=== PATIENT | male | born 1955 | race Caucasian/White ===

== ENCOUNTER 2020-09-12 11:56 | Outpatient (REF) | payer OTHER, SELFPAY | END 2020-09-12 11:57 | disposition home or self-care (01) | LOC: HO.10HDL 11:56 | PROVIDERS: Visit Provider Urology | DX: N32.0 Bladder-neck obstruction (principal) | CPT/HCPCS: 36415; 84153 ==

== ENCOUNTER → 2020-09-13 13:31 | Outpatient (BNVA) | payer OTHER, SELFPAY | PROVIDERS: PCP Internal Medicine; Visit Provider Urology | DX: N40.1 Benign prostatic hyperplasia with lower urinary tract symptoms (principal); R39.12 Poor urinary stream; N13.8 Other obstructive and reflux uropathy | CPT/HCPCS: 99212 ==

== ENCOUNTER 2022-05-09 10:09 | Outpatient (REF) | payer OTHER, SELFPAY ==
[2022-05-09 11:31] LABS: Vitamin B12 395 pg/mL (200-900)
== END 2022-05-09 10:10 | disposition home or self-care (01) ==
LOC: HO.LAB 10:09
PROVIDERS: PCP Internal Medicine; Visit Provider Psychiatry & Neurology Neurology
DX: G31.84 Mild cognitive impairment of uncertain or unknown etiology (principal)
CPT/HCPCS: 36415; 82607

== ENCOUNTER 2022-06-17 07:32 | Day surgery (SDC) | payer OTHER, SELFPAY ==
--- NOTE | 2022-05-22 09:45 | HO.ANESPROP2 ---
HPI - Anesthesia Eval Consult details Narrative: 66yo M for Colonoscopy PMFSH Active Problems Active Problems: All Active Problems (Updated 05/19/22 @ 12:17 by Kim Uriostegui, RN) BPH w urinary obs/LUTS (Acute) Weak urinary stream (Acute) Past Medical History Medical History (Updated 05/19/22 @ 12:17 by Kim Uriostegui, RN) Arthritis Asthma Chronic back pain COPD (chronic obstructive pulmonary disease) Depression Diabetes mellitus Diabetes type 2 with atherosclerosis of arteries of extremities Elevated cholesterol History of palpitations HTN (hypertension) Insomnia Surgical History Surgical History (Updated 05/19/22 @ 12:17 by Kim Uriostegui, RN) History of hand surgery Meds Allergies Allergy/AdvReac Type Severity Reaction Status Date / Time No Known Allergies Allergy Unverified 05/19/22 12:17 Home Medications Medication Instructions Recorded Confirmed Last Taken Type atorvastatin 20 mg tablet 20 mg PO DAILY 09/13/20 05/19/22 Unknown History cholecalciferol (vitamin D3) 10 10 mcg PO DAILY 09/13/20 05/19/22 Unknown History mcg/drop (400 unit/drop) oral drops (Baby Vitamin D3) finasteride 5 mg tablet 5 mg PO DAILY 09/13/20 05/19/22 Unknown History multivit with minerals-iron 18 tab PO 09/13/20 Unknown History mg-folic ac 400 mcg-vit K 25 mcg tablet (Adults Multivitamin) risperidone 1 mg tablet 1 mg PO DAILY 09/13/20 05/19/22 Unknown History tamsulosin 0.4 mg capsule 0.4 mg PO DAILY 09/13/20 05/19/22 Unknown History valsartan 40 mg tablet 40 mg PO BID 09/13/20 05/19/22 Unknown History Exam Exam Date and Time: May 22, 2022 0945 Assessment and Plan Assessment Anesthesia Assessment: Chart Reviewed
--- NOTE | 2022-06-16 10:09 | HO.ANESPROP2 ---
Documented by User: Xiomara Reyes NP 06/16/22 10:09 HPI - Anesthesia Eval Consult details Narrative: 67yo M for Colonoscopy PMFSH Active Problems Active Problems: All Active Problems (Updated 05/19/22 @ 12:17 by Kim Uriostegui RN) BPH w urinary obs/LUTS (Acute) Weak urinary stream (Acute) Past Medical History Medical History (Updated 05/19/22 @ 12:17 by Kim Uriostegui RN) Arthritis Asthma Chronic back pain COPD (chronic obstructive pulmonary disease) Depression Diabetes mellitus Diabetes type 2 with atherosclerosis of arteries of extremities Elevated cholesterol History of palpitations HTN (hypertension) Insomnia Surgical History Surgical History (Updated 05/19/22 @ 12:17 by Kim Uriostegui RN) History of hand surgery Social History Social History Patient Tobacco Use Status: Current everyday Tobacco user Tobacco use type: Cigarette Cigarettes Per Day: 5 Years Smoked: 50 Smoked in Last 30 Days: Yes Use of substances other than those prescribed or required for medical reasons: Yes Are you DNR?: No Advance Directives: No Advance Directives Information Provided: Yes Meds Allergies Allergy/AdvReac Type Severity Reaction Status Date / Time No Known Allergies Allergy Verified 06/17/22 08:36 Home Medications Medication Instructions Recorded Confirmed Last Taken Type atorvastatin 20 mg tablet 20 mg PO DAILY 09/13/20 06/17/22 Unknown History cholecalciferol (vitamin D3) 10 10 mcg PO DAILY 09/13/20 05/19/22 Unknown History mcg/drop (400 unit/drop) oral drops (Baby Vitamin D3) finasteride 5 mg tablet 5 mg PO DAILY 09/13/20 05/19/22 Unknown History multivit with minerals-iron 18 1 tab PO DAILY 09/13/20 06/17/22 Unknown History mg-folic ac 400 mcg-vit K 25 mcg tablet (Adults Multivitamin) risperidone 1 mg tablet 1 mg PO DAILY 09/13/20 05/19/22 Unknown History tamsulosin 0.4 mg capsule 0.4 mg PO DAILY 09/13/20 05/19/22 Unknown History valsartan 40 mg tablet 40 mg PO BID 09/13/20 05/19/22 Unknown History Exam Exam Date and Time: June 16, 2022 1009 Assessment and Plan Assessment Anesthesia Assessment: Chart Reviewed Documented by User: Cirilo Spaulding MD 06/17/22 17:18 [facility] Past Medical History Medical History (Updated 05/19/22 @ 12:17 by Kim Uriostegui RN) Arthritis Asthma Chronic back pain COPD (chronic obstructive pulmonary disease) Depression Diabetes mellitus Diabetes type 2 with atherosclerosis of arteries of extremities Elevated cholesterol History of palpitations HTN (hypertension) Insomnia Functional capacity: independent ambulation Family History Family history of problems with anesthesia: No Surgical History Surgical History (Updated 05/19/22 @ 12:17 by Kim Uriostegui RN) History of hand surgery History of Problems with Anesthesia: No Social History Social History Patient Tobacco Use Status: Current everyday Tobacco user Tobacco use type: Cigarette Cigarettes Per Day: 5 Years Smoked: 50 Smoked in Last 30 Days: Yes Use of substances other than those prescribed or required for medical reasons: Yes Are you DNR?: No Advance Directives: No Advance Directives Information Provided: Yes Meds Allergies Allergy/AdvReac Type Severity Reaction Status Date / Time No Known Allergies Allergy Verified 06/17/22 08:36 Home Medications Medication Instructions Recorded Confirmed Last Taken Type atorvastatin 20 mg tablet 20 mg PO DAILY 09/13/20 06/17/22 Unknown History cholecalciferol (vitamin D3) 10 10 mcg PO DAILY 09/13/20 05/19/22 Unknown History mcg/drop (400 unit/drop) oral drops (Baby Vitamin D3) finasteride 5 mg tablet 5 mg PO DAILY 09/13/20 05/19/22 Unknown History multivit with minerals-iron 18 1 tab PO DAILY 09/13/20 06/17/22 Unknown History mg-folic ac 400 mcg-vit K 25 mcg tablet (Adults Multivitamin) risperidone 1 mg tablet 1 mg PO DAILY 09/13/20 05/19/22 Unknown History tamsulosin 0.4 mg capsule 0.4 mg PO DAILY 09/13/20 05/19/22 Unknown History valsartan 40 mg tablet 40 mg PO BID 09/13/20 05/19/22 Unknown History Exam Airway Mallampati Class: III TM Dist: >3cm Denture: Upper Loose/Missing/Broken Teeth: Yes (Poor dentition overall , chipped teeth ) Heart: S1,S2 Lungs: b/l breath sounds Assessment and Plan Assessment Anesthesia Assessment: Anesthesia Plan Discussed Final Anesthetic Review Family History of Problems with Anesthesia: No History of Problems with Anesthesia: No NPO: Yes ASA Class: III Final Preanesthetic Review: Meds/Allgs Chart Reviewed, Consent Obtained/Reviewed and Anes Risks/Benef Reviewed Patient Risk: Intermediate Procedure Risk: Intermediate Anesthetic Plan Anesthetic Plan: MAC: Disposition: Standard PACU
[2022-06-17 08:25] VITALS: BP 149/82; PULSE 104; RESP 16; TEMP 36.8; O2SAT 95
[2022-06-17 08:33] LABS: Glucose, Whole Blood 108 mg/dL (60-115)
[2022-06-17 08:38] VITALS: BMI 26.6
[2022-06-17] MEDS: Lactated Ringers 1,000 ML 100 ML IVCONT (09:07)
--- NOTE | 2022-06-17 09:43 | MHC.SHP ---
Pre-Procedural Eval Section A Date of Service: 06/17/22 The patient is an INPATIENT: No Changes since office visit: No Cold of Flu in the past 2 weeks, No New Medical Problems, No Changes in Medication and No Patient answered all questions The History & Physical has been completed within 30 days and I have reviewed it.: Yes Section B Chief Complaint: Encounter for screening for malignant neoplasm of Allergies: Allergies Allergy/AdvReac Type Severity Reaction Status Date / Time No Known Allergies Allergy Verified 06/17/22 08:36 Plan I have reviewed the history and physical and performed a pertinent physical examination on my patient. No changes have occurred unless specified.
--- NOTE | 2022-06-17 10:37 | PM.OP ---
Brief Operative Note Date of Service: 06/17/22 Pre-op diagnosis: screening Surgeon: Ramon Singleton Was an Bleach Boiler Puller used for this Procedure?: No Estimated blood loss (mL): 0 Pathology: none sent Condition: stable Disposition: PACU
[2022-06-17 10:41] VITALS: BP 107/64; PULSE 89; RESP 16; TEMP 36.6; O2SAT 96
[2022-06-17 10:56] VITALS: BP 115/73; PULSE 87; RESP 24; TEMP 36.4; O2SAT 95
[2022-06-17 11:11] VITALS: BP 116/75; PULSE 95; RESP 16; TEMP 36.1; O2SAT 95
[2022-06-17 11:26] VITALS: BP 138/82; PULSE 89; RESP 18; TEMP 36.4; O2SAT 95
--- NOTE | 2022-06-18 02:22 | OP_ITS ---
SURGEON: Ramon Singleton MD INDICATIONS: Colon cancer screening and prior history of adenomatous colon polyps. PREOPERATIVE DIAGNOSIS: POSTOPERATIVE DIAGNOSIS: PROCEDURE PERFORMED: Colonoscopy to the terminal ileum. ESTIMATED BLOOD LOSS: COMPLICATIONS: ANESTHESIA: ASSISTANTS: SPECIMENS: DESCRIPTION OF PROCEDURE: The procedure was done on 06/17/2022. A history and physical were performed the risks and benefits of the procedure were explained to the patient. Informed consent was obtained. The patient was placed in the left lateral decubitus position. A digital rectal exam was performed, and was found to be normal. The Olympus pediatric video colonoscope was introduced into the rectum and advanced to the cecum without difficulty. The cecum was identified by transillumination, palpation, and identification of the ileocecal valve. Examination was performed. The scope was removed. He tolerated the procedure well and was taken to the recovery area in stable condition. FINDINGS: The terminal ileum was examined and appeared normal. The visualized colonic mucosa was normal. The quality of prep was good. No polyps were identified. Retroflexed examination was normal. IMPRESSION: Normal screening colonoscopy. RECOMMENDATION: 1. Follow up as needed. 2. Repeat colonoscopy is recommended in 10 years for average risk individuals. MD KOREY Ibanez/REECE / [id number]
== END 2022-06-17 12:25 | disposition home or self-care (01) ==
PROVIDERS: PCP Internal Medicine; Visit Provider Internal Medicine Gastroenterology
PROC: 0DJD8ZZ Inspection of Lower Intestinal Tract, Via Natural or Artificial Opening Endoscopic (ICD-10-PCS; CPT 45378; principal; 2022-06-17 09:20)
DX: Z12.11 Encounter for screening for malignant neoplasm of colon (principal); Z86.010 Personal history of colon polyps; K59.09 Other constipation; K21.9 Gastro-esophageal reflux disease without esophagitis; N40.0 Benign prostatic hyperplasia without lower urinary tract symptoms; I10 Essential (primary) hypertension; J44.9 Chronic obstructive pulmonary disease, unspecified; E11.9 Type 2 diabetes mellitus without complications; G47.33 Obstructive sleep apnea (adult) (pediatric); M19.90 Unspecified osteoarthritis, unspecified site; F32.A Depression, unspecified; Z79.899 Other long term (current) drug therapy; F17.210 Nicotine dependence, cigarettes, uncomplicated
CPT/HCPCS: G0105; 82947

== ENCOUNTER 2023-11-04 15:00 | Outpatient (REF) | payer OTHER, SELFPAY | END 2023-11-04 15:01 | disposition home or self-care (01) | LOC: HO.HHCLNP 15:00 | PROVIDERS: Visit Provider Nurse Practitioner Family | DX: Z13.89 Encounter for screening for other disorder (principal) ==

== ENCOUNTER 2023-12-11 14:19 | Outpatient (REF) | payer OTHER, SELFPAY ==
[2023-12-11 16:30] LABS: Hematocrit 44.9 % (42.0-52.0); Hemoglobin 14.9 g/dl (14.0-18.0); Mean Corpuscular HGB Conc 33.2 g/dl (31.0-36.0); Mean Corpuscular Hemoglobin 30.6 pg (27.0-33.0); Mean Corpuscular Volume 92.2 fL (80.0-98.0); Platelet Count 178 X10*3/uL (160-400); Red Blood Count 4.87 X10*6/uL (4.60-5.80); Red Cell Distribution Width 13.1 % (11.0-16.0); White Blood Count 8.7 X10*3/uL (4.8-10.8)
[2023-12-11 16:41] LABS: Appearance Urine Turbid; Glucose Urine UA Negative (Negative); Leukocyte Esterase Urine Trace (Negative); Nitrite Urine Negative (Negative); PH 5.5 (5.0-9.0); Specific Gravity - Urine >= 1.030 (1.005-1.025); UMIC TRIGGER UACC YES; Urine Blood Negative (Negative); Urine Ketones Trace mg/dL (Negative); Urine Protein Trace mg/dL (Neg-Trace)
[2023-12-11 16:44] LABS: Bacteria Urine None Seen (None Seen); Hyaline Casts Urine 0-2 /LPF (0-2); RBC Urine 0-2 /HPF (0-2); Squamous Epithelial Cell Urine 0-2 /HPF (0-2); WBC Urine 0-5 /HPF (0-5)
[2023-12-11 16:50] LABS: Color Urine Yellow
[2023-12-11 17:10] LABS: Estimated Average Glucose 126 mg/dL; Hemoglobin A1C 149.0682 umol/L
[2023-12-11 17:23] LABS: Alanine Aminotransferase 16 U/L (0-40); Albumin Level 4.2 g/dL (3.5-5.0); Alkaline Phosphatase 98 U/L (39-117); Anion Gap 12 (12-20); Aspartate Amino Transferase 22 U/L (5-37); Bilirubin Total 0.5 mg/dL (0.0-1.0); Blood Urea Nitrogen 11 mg/dL (9-16); Calcium 9.3 mg/dL (8.4-10.2); Carbon Dioxide 27 mmol/L (22-29); Chloride 106 mmol/L (96-108); Estimated Glomerular Filt Rate > 60; Glucose Random 82 mg/dL (60-115); Potassium 3.8 mmol/L (3.3-5.1); Sodium 141 mmol/L (135-145); Total Protein 7.1 g/dL (6.5-8.0)
== END 2023-12-11 14:20 | disposition home or self-care (01) ==
LOC: HO.HHCL 14:19
PROVIDERS: Visit Provider Student in an Organized Health Care Education/Training Program
DX: R82.998 Other abnormal findings in urine (principal); R63.4 Abnormal weight loss
CPT/HCPCS: 36415; 80053; 81001; 82550; 83036; 85027

== ENCOUNTER 2023-12-14 11:43 | Outpatient (REF) | payer OTHER, SELFPAY ==
--- NOTE | ~2023-12-14 | XR_ITS ---
EXAMINATION: XR LUMBOSACRAL SPINE CLINICAL INFORMATION: Chronic low back pain without sciatica COMPARISON: None available. TECHNIQUE: Three views of the lumbosacral spine. FINDINGS: There is a transitional lumbosacral vertebral body which for the purposes study will be called S1. There 5 nonrib-bearing lumbar-type vertebral bodies. The height of vertebral bodies is well-maintained. There is marked disc space narrowing with discogenic sclerosis and vacuum phenomenon at L5-S1 consistent with degenerative disc disease. There is no spondylolisthesis. There is moderate to marked degenerative facet joint disease L4-L5 and L5-S1. XR/XR lumbar spine 2-3V IMPRESSION: 1. Marked degenerative disc disease at L5-S1. 2. Moderate to marked degenerative facet joint disease L4-L5 and L5-S1.
--- NOTE | ~2023-12-14 | XR_ITS ---
EXAMINATION: XR CHEST CLINICAL INFORMATION: Cough with weight loss, COPD, decreased breath sounds. COMPARISON: Chest 02/16/2019, 11/18/2018 TECHNIQUE: 2 views of the chest were obtained. FINDINGS: The lungs are hyperinflated with flattening of the hemidiaphragm. No focal consolidation, interstitial pulmonary edema or pneumothorax. No pleural effusion. No significant abnormality is noted involving the heart, mediastinum, bony thorax or soft tissues. XR/XR chest 2V IMPRESSION: No acute abnormality.
== END 2023-12-14 11:44 | disposition home or self-care (01) ==
LOC: HO.HHCX 11:43
PROVIDERS: Visit Provider Student in an Organized Health Care Education/Training Program
DX: J44.9 Chronic obstructive pulmonary disease, unspecified (principal); R63.4 Abnormal weight loss; M54.50 Low back pain, unspecified; G89.29 Other chronic pain
CPT/HCPCS: 71046; 72100

== ENCOUNTER 2024-01-08 11:00 | Outpatient (REF) | payer OTHER, SELFPAY ==
--- NOTE | ~2024-01-08 | US_ITS ---
EXAMINATION: US RETROPERITONEAL LIMITED (RENAL ONLY) CLINICAL INFORMATION: Lower back pain, rule out mass. COMPARISON: Abdominal ultrasound 07/17/2012. TECHNIQUE: Real-time imaging of the kidneys. FINDINGS: RIGHT KIDNEY: 10.7 x 6.5 x 4.5 cm (SAG x AP x TRV). The kidney is normal in size, contour, and echogenicity. Renal cortical thickness is normal. No renal calculi or hydronephrosis. 0.9 cm simple cyst in the lower pole. No follow-up imaging is recommended. LEFT KIDNEY: 12.0 x 6.1 x 4.7 cm (SAG x AP x TRV). The kidney is normal in size, contour, and echogenicity. Renal cortical thickness is normal. No renal calculi or hydronephrosis. 3.4 cm simple cyst in the lower pole. No follow-up imaging is recommended. US/US renal BI IMPRESSION: No explanation for back pain. No suspicious renal mass. No nephrolithiasis or hydronephrosis.
== END 2024-01-08 11:01 | disposition home or self-care (01) ==
LOC: HO.US 11:00
PROVIDERS: PCP Internal Medicine; Visit Provider Student in an Organized Health Care Education/Training Program
DX: R82.998 Other abnormal findings in urine (principal); R63.4 Abnormal weight loss; K59.00 Constipation, unspecified; F17.219 Nicotine dependence, cigarettes, with unspecified nicotine-induced disorders
CPT/HCPCS: 76775

== ENCOUNTER 2024-03-18 11:40 | Outpatient (REF) | payer OTHER, SELFPAY ==
--- NOTE | ~2024-03-18 | XR_ITS ---
EXAMINATION: XR CHEST CLINICAL INFORMATION: Cough. COMPARISON: 12/14/2023 TECHNIQUE: 2 views of the chest were obtained. FINDINGS: The lungs are well expanded. There is basilar airspace disease seen on the lateral projection. No pleural effusion. Cardiac silhouette is unchanged. XR/XR chest 2V IMPRESSION: Basilar airspace disease. This may represent pneumonia. Advise clinical correlation and short interval follow-up imaging.
== END 2024-03-18 11:41 | disposition home or self-care (01) ==
LOC: HO.HHCX 11:40
PROVIDERS: Visit Provider Nurse Practitioner Family
DX: R05.9 Cough, unspecified (principal)
CPT/HCPCS: 71046

== ENCOUNTER 2025-01-25 10:14 | Outpatient (AMB) | payer OTHER, SELFPAY ==
--- NOTE | 2025-01-25 10:30 | A.OFFVIS_ITS ---
Intake Visit Reasons: bilateral hydrocele/BPH Intake Note: Patient is present for BILATERAL HYDROCELE/BHP Urology Medication:TAMSULOSIN,FINASTERIDE Antibiotic Allergy:NONE Blood Thinner:NONE TODAY'S PVR:0ML'S Application Security Architect Required: No Allergies No Known Allergies Allergy (Verified 01/25/25 10:31) HPI Comments Details: Junior is a very pleasant Hungarian-speaking male. He is a patient of . He is seen for the following urologic conditions - lower urinary tract symptoms - bilateral hydrocele Main concern is occasional intermittent pain on left side scrotum On exam small hydrocele Follow-up 6 months with scrotal ultrasound Lower Urinary Tract Symptoms: Translation office Doing well with urination. Feel stream is strong. PSA is minimal Review in 12 months Current visit is for further evaluation of, lower urinary tract symptoms, predominate obstructive symptoms. Current treatment includes no medications Prior treatments include 07/11 , alpha blockers 12/10 , procedure LAUREN. Prostate Symptom Score 07/11 , Moderate (9-19), Bother 3. Symptoms include 07/11 , incomplete emptying, weak stream, nocturia (>2), and are progressing 10/12 , incomplete emptying, straining. PSA 09/11 PSA 1.1 - 09/13 0.3 Prostate volume 30-50gm. [facility] Medical History (Updated 01/25/25 @ 10:47 by Rao Pretty MD) Insomnia Chronic back pain History of palpitations Diabetes mellitus Depression COPD (chronic obstructive pulmonary disease) Elevated cholesterol HTN (hypertension) Diabetes type 2 with atherosclerosis of arteries of extremities Arthritis Asthma Surgical History (Updated 05/19/22 @ 12:17 by Kim Uriostegui RN) History of hand surgery Social History Patient Tobacco Use Status: Current everyday Tobacco user Tobacco use type: Cigarette Cigarettes Per Day: 5 Years Smoked: 50 Review of Systems Const Denies chills and Denies fever(s) Card Reports no additional complaints and Denies syncope Resp Denies cough GI Denies abdominal pain and Denies heartburn Reports as per HPI and Denies change in libido Neuro Denies syncope Psych Denies change in libido Endo Denies change in libido Physical Exam Const General: cooperative, healthy appearing, comfortable and no acute distress Orientation/consciousness: patient oriented x3 HEENT Face and sinus: Yes normal facial exam Mouth: moist mucous membranes Neck Neck: Yes normal visual inspection, Yes full ROM and Yes trachea midline Chest Chest palpation & inspection: normal inspection of the chest Resp Effort & Inspection: normal respiratory effort, able to speak in complete sentences and no respiratory distress GI Inspection: Yes normal to inspection Back/Spine/Pelvis Cervical Spine: normal cervical lordosis Thoracic/Lumbar Spine: thoracic and lumbar spine normal to inspection Skin General skin exam: no rashes or lesions noted Neuro General: patient oriented x3, gait normal, tone normal and moves all extremities Extrem General: Yes normal to inspection and Yes capillary refill normal Office Procedures Post Void Residual Post Residual Void Post Void Residual (PVR): 0 06010-Brmn Void Residual by ultrasound Assessment & Plan Assessment & Plan (1) BPH w urinary obs/LUTS: Code(s): N40.1 - Benign prostatic hyperplasia with lower urinary tract symptoms; N13.8 - Other obstructive and reflux uropathy Category: Medical (2) Weak urinary stream: Code(s): R39.12 - Poor urinary stream Category: Medical (3) Hydrocele in adult: Code(s): N43.3 - Hydrocele, unspecified Category: Medical Plan Six-month follow-up check scrotal ultrasound Orders: Orders AMB Urinalysis Automated Today Z13.9 - Encounter for screening, unspecified US scrotum 6 Months N43.3 - Hydrocele, unspecified Patient Instructions: This note is constructed using voice recognition software. While every effort has been made to ensure accuracy can reconditioner errors may have been included. Imaging studies, laboratory and physical exam results were discussed and reviewed in detail. No major barriers to patient understanding were identified. An opportunity to ask questions regarding the treatment plan was provided. All questions were answered. The patient expressed understanding and agreement with the above treatment plan. The patient is aware they should contact our office by phone for worsening of their current condition or the appearance of new urologic symptoms. Compliance is encouraged with any medications and followup testing that is ordered. It is a privilege to participate in the urologic care of your patient. If you have any questions or concerns regarding treatment for the above conditions, or other urologic issues, please do not hesitate to contact me. The office telephone contact is [phone]. Sincerely, Dr Rao Pretty MD, [facility] - Urology Compassionate Specialist Care for the Genitourinary System Coding Level of Care Code New Pt Level 3 (59392) Diagnoses BPH w urinary obs/LUTS N40.1; N13.8 Weak urinary stream R39.12 Hydrocele in adult N43.3 CPT Codes Post Residual Void - PVR CPT Code: 96672-Wgzh Void Residual by ultrasound ([id number])
--- OUTSIDE RECORDS SUMMARY | 2025-01-25 10:53 | XMS_ITS | Patient Health Record ---
Author Organization [facility] Address [address] [place] [id number] Care Team Providers Care Hosiery Operator Name Role Phone Dominick Edwards Primary Care Provider Ramon Masters Jr Unavailable Allergies No Known Allergies Reason For Referral No Information Medications Medication SIG (Take, Route, Frequency, Duration) Notes Start Date End Date Status Multivitamin - 1 tablet Orally Once a day for 30 day(s) Active MiraLax (colon prep) 17 GM/SCOOP mixed with Gatorade or Crystal Light Orally begin at 5:00 p.m. the day before the procedure for 1 day 05/08/2022 Active Nicotine 21 MG/24HR 1 patch to skin Transdermal Once a day for 30 day(s) Active Polyethylene Glycol 3350 17 GM/SCOOP Oral for 15 Active FreeStyle Lancets - as directed Active Sertraline HCl 100 MG TAKE 2 TABLETS BY MOUTH EVERY MORNING Oral for 30 Active Simethicone 180 MG 1 capsule after meal s and at bedtime as needed Orally Twice a day Active Ventolin HFA 108 (90 Base) MCG/ACT INHALE 2 PUFFS BY MOUTH FOUR TIMES DAILY NEEDED FOR WHEEZING J 45.4 Inhalation for 25 Active Atorvastatin Calcium 80 MG 1 tablet Oral ly Once a day for 30 day(s) Active risperiDONE 1 MG TAKE 1 TABLET BY JEFF TH EVERY MORNING FOR AGITATION OR AGGRESSION Oral for 30 Active Spiriva Respimat 1.25 MCG/ACT 2 puffs Inhalation Once a day Active ProAir HFA 108 (90 Base) MCG/ACT 1 puff as needed Inhalation every 4 hrs Active Omeprazole 40 MG 1 capsule 30 minutes before morning meal Orally Once a day for 30 day(s) Active Trelegy Ellipta 200-62.5-25 MCG/INH Inhalation for 30 Active Gabapentin 300 MG 1 capsule Orally Onc e a day for 30 day(s) Active Vitamin D3 50 MCG (1999 UT) TAKE 1 CAPSU LE BY MOUTH DAILY Oral for 90 Active Mupirocin 2 % 1 application Supervisor Home Energy Consultant ally Twice a day for 5 day(s) Active Tamsulosin HCl 0.4 MG 1 capsule Orally O nce a day for 30 day(s) Active Dulera 100-5 MCG/ACT 2 puffs Inhalation Twice a day Active cloNIDine HCl 0.1 MG TAKE 1 TABLET BY MO UTH THREE TIMES DAILY NEEDED FOR ANXIETY Diagnosis Unavailable Oral for 30 Active Finasteride 5 MG 1 tablet Orally Once a day for 30 day(s) Active traZODone HCl 100 MG TAKE 3 TABLETS BY M OUTH AT BEDTIME. INCREASE DOSE Oral for 30 Active OXcarbazepine 150 MG Oral for 90 Active Immunizations Vaccine Route Administration Date Status Comme nts Influenza Unknown 06/11/2021 Administered Social History Tobacco Use: Social History Observation Description Date Details (start date - stop date) Current Smoker NA - NA Tobacco Use/Smoking Question Answer Notes Patient is a current smoker Alcohol Screen Question Answer Notes Did you have a drink containing alcohol in the p ast year? No Points 0 Interpretation Negative Problems Problem Type SNOMED Code ICD Code Onset Dates Problem Status W/U Status Risk Notes Problem 768029454 Colon cancer screening (Z12.11) Active confirmed Problem History of polyp of colon (598540117) History of colon polyps (Z86.010) Active confirmed Problem 316791001 Chronic constipation (K59.09) Active confirmed Plan Of Treatment Future Test Test Name Order Date COLONOSCOPY 05/08/2022 Insurance Providers Payer Name Payer Address Payer Phone Subscriber Number Group Number Insured Name Patient Relationship to Insured Coverage Start Date Coverage End Date [facility] [address] [place] [address] [id number] BRITTANY WILKERSON Self - patient is the insured MEDICARE OF [place] [address] [place] [address] [id number] BRITTANY WILKERSON Self - patient is the insured Medical (General) History Medical History History ICD Code Diabetes mellitus type 2 currently diet controlled Hypertension COPD/chronic bronchitis RICARDA/CPAP Arthritis Depression Sinus problems BPH GERD Surgical History Surgery Date(Month/Year)
== END 2025-01-25 10:58 | disposition home or self-care (01) ==
LOC: HO.HUSH 10:15
PROVIDERS: PCP Internal Medicine; Visit Provider Urology
DX: N40.1 Benign prostatic hyperplasia with lower urinary tract symptoms (principal); N13.8 Other obstructive and reflux uropathy; R39.12 Poor urinary stream; N43.3 Hydrocele, unspecified; Z13.9 Encounter for screening, unspecified
CPT/HCPCS: 99203

== ENCOUNTER → 2025-01-25 10:14 | Outpatient (BNVA) | payer OTHER, SELFPAY | PROVIDERS: PCP Internal Medicine; Visit Provider Urology | DX: N40.1 Benign prostatic hyperplasia with lower urinary tract symptoms (principal); N13.8 Other obstructive and reflux uropathy; N43.3 Hydrocele, unspecified; R39.12 Poor urinary stream | CPT/HCPCS: 51798; 81003; 99202 ==

== ENCOUNTER 2025-08-21 14:08 | Outpatient (REF) | payer OTHER, SELFPAY ==
--- NOTE | ~2025-08-21 | US_ITS ---
EXAMINATION: US SCROTUM HISTORY: N43.3 - Hydrocele, unspecified. COMPARISON: There are no prior studies available for comparison. FINDINGS: Real-time grayscale ultrasound imaging of the scrotum was performed. RIGHT TESTICLE: The right testis measures 4.4 x 2.2 x 2.8 cm and demonstrates normal homogeneous echotexture. No masses are seen. The right testis demonstrates normal color and spectral Doppler flow. RIGHT EPIDIDYMIS: There is a 7 x 6 x 7 mm echogenic mass of the epididymal body. LEFT TESTICLE: The left testis measures 4.3 x 2.7 x 2.6 cm and demonstrates normal homogeneous echotexture. No masses are seen. The left testis demonstrates normal color and spectral Doppler flow. LEFT EPIDIDYMIS: Normal in size, shape, and vascularity. Calcifications of the left epididymal tail which may represent the sequela of prior epididymitis. VARICOCELE: None. HYDROCELE: There are small bilateral hydroceles. OTHER COMMENTS: None. US/US scrotum IMPRESSION: 1. 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 Follow-up is recommended if no intervention is planned. 2. Calcifications of the left epididymal tail which may represent the sequela of prior epididymitis. 3. Small bilateral hydroceles. Electronically signed by: Elfego Chaves MD 08/21/2025 03:44 PM EST
--- OUTSIDE RECORDS SUMMARY | 2025-08-21 16:26 | XMS_ITS | Encounter Summary ---
Author Organization [facility] Address [address] [place] [address] Care Team Providers Care Production Recovery Operator Name Role Phone Kailee Barker Primary Care Provider [phone] Reason for Visit * Reason Onset Date Comments CONSULT 07/19/2025 Encounter Details Date Type Department Care Team ([facility] st Contact Info) Description 07/19/2025 Telephone Gastroenterology - [address] [phone] Yash Ortiz MD [address] [id number] Social History Tobacco Use Types Packs/Day Years Used Date Smoking Tobacco: Every Day Cigarettes Smokeless Tobacco: Never Alcohol Use Standard Drinks/Week Comments Never 0 (1 standard drink = 0.6 oz pur e alcohol) Interpersonal Safety Answer Date Record ed Physical Abuse Unrecognized value 03/08/2025 Verbal Abuse Unrecognized value 03/08/2025 Sex and Gender Information Value Date Recorded Sex Assigned at Male 09/02/2024 1:14 PM EST Legal Sex Male 4:56 AM EST Gender Identity Male 09/02/2024 1:14 PM EST Sexual Orientation Straight 09/02/2024 1: 14 PM EST documented as of this encounter Progress Notes * Leana Knapp - 07/25/2025 3:10 PM EST SCHEDULED. * Sonia Arnett - 07/19/2025 11:37 AM EST Referral received from Kailee Barker office for chronic dysphasia,acid reflux,egd? 1st attempt to reach pt to schedule appt. Left a voicemail and Placed in call accordin documented in this encounter Plan of Treatment Upcoming Encounters Date Type Department Care Team (Late st Contact Info) Description 03/27/2026 3:00 PM EDT Consult Gastroenterology - [address] [address] Geetha Clark, KRYSTIAN [address] [address] documented as of this encounter Visit Diagnoses Not on filedocumented in this encounter Care Teams Production Recovery Operator Relationship Specialty Start Date End Date Kailee Barker [address] [place] [address] PCP - General 03/09/25 documented as of this encounter
--- OUTSIDE RECORDS SUMMARY | 2025-08-21 16:26 | XMS_ITS | Patient Health Record ---
Author Organization [facility] Address [address] [place] [id number] Care Team Providers Care Court Worker Name Role Phone Dominick Edwards Primary Care Provider Ramon Masters Jr Unavailable Allergies No Known Allergies Reason For Referral No Information Medications Medication SIG (Take, Route, Frequency, Duration) Notes Start Date End Date Status Multivitamin - Tablet 1 tablet Orally On ce a day; Duration: 30 day(s) Active MiraLax (colon prep) 17 GM/SCOOP Powder mixed with Gatorade or Crystal Light Orally begin at 5:00 p.m. the day before the procedure; Duration: 1 day 05/08/2022 Active Nicotine 21 MG/24HR Patch 24 Hour 1 patch to skin Transdermal Once a day; Duration: 30 day(s) Active Polyethylene Glycol 3350 17 GM/SCOOP Powder Oral; Duration: 15 Active FreeStyle Lancets - Miscellaneous as directed Active Sertraline HCl 100 MG Tablet TAKE 2 TABLETS BY MOUTH EVERY MORNING Oral; Duration: 30 Active Simethicone 180 MG Capsule 1 capsule aft er meals and at bedtime as needed Orally Twice a day Active Ventolin HFA 108 (90 Base) MCG/ACT Aerosol Solution INHALE 2 PUFFS BY MOUTH FOUR TIMES DAILY NEEDED FOR WHEEZING J 45.4 Inhalation; Duration: 25 Active Atorvastatin Calcium 80 MG Tablet 1 tablet Orally Once a day; Duration: 30 day(s) Active risperiDONE 1 MG Tablet TAKE 1 TABLET BY MOUTH EVERY MORNING FOR AGITATION OR AGGRESSION Oral; Duration: 30 Active Spiriva Respimat 1.25 MCG/ACT Aerosol Solution 2 puffs Inhalation Once a day Active ProAir HFA 108 (90 Base) MCG/ACT Aerosol Solution 1 puff as needed Inhalation every 4 hrs Active Omeprazole 40 MG Capsule Delayed Release 1 capsule 30 minutes before morning meal Orally Once a day; Duration: 30 day(s) Active Trelegy Ellipta 200-62.5-25 MCG/INH Aerosol Powder Breath Activated Inhalation; Duration: 30 Active Gabapentin 300 MG Capsule 1 capsule Oral ly Once a day; Duration: 30 day(s) Active Vitamin D3 50 MCG (2000 UT) Capsule TAKE 1 CAPSULE BY MOUTH DAILY Oral; Duration: 90 Active Mupirocin 2 % Ointment 1 application Ext ernally Twice a day; Duration: 5 day(s) Active Tamsulosin HCl 0.4 MG Capsule 1 capsule Orally Once a day; Duration: 30 day(s) Active Dulera 100-5 MCG/ACT Aerosol 2 puffs Inhalation Twice a day Active cloNIDine HCl 0.1 MG Tablet TAKE 1 TABLE T BY MOUTH THREE TIMES DAILY NEEDED FOR ANXIETY Diagnosis Unavailable Oral; Duration: 30 Active Finasteride 5 MG Tablet 1 tablet Orally Once a day; Duration: 30 day(s) Active traZODone HCl 100 MG Tablet TAKE 3 TABLE TS BY MOUTH AT BEDTIME. INCREASE DOSE Oral; Duration: 30 Active OXcarbazepine 150 MG Tablet Oral; Duration: 90 Active Immunizations Vaccine Route Administration Date Status Comme nts Influenza Unknown 06/11/2021 Administered Social History Tobacco Use: Social History Observation Description Date Details (start date - stop date) Current Smoker NA - NA Social History Drugs/Alcohol: Social Info Question Answer Notes Alcohol Screen Did you have a drink containing alcohol in the past year? No Points 0 Interpretation Negative Tobacco Use: Social Info Question Answer Notes Tobacco Use/Smoking Patient is a current smoker Additional Details Category Social Info Options Details Miscellaneous: Marital status: Occupation: diabled Problems Problem Type SNOMED Code ICD Code Onset Dates Problem Status W/U Status Risk Notes Problem Colon cancer screening (295719746) Colon cancer screening (Z12.11) Active confirmed Problem History of polyp of colon (situation) (886819944) History of colon polyps (Z86.010) Active confirmed Problem Chronic constipation (287210399) Chronic constipation (K59.09) Active confirmed Plan Of Treatment Future Test Test Name Order Date COLONOSCOPY 05/08/2022 Insurance Providers Payer Name Payer Address Payer Phone Subscriber Number Group Number Insured Name Patient Relationship to Insured Coverage Start Date Coverage End Date [facility] [address] [place] [address] [phone] [id number] BRITTANY WILKERSON Self - patient is the insured MEDICARE OF [place] [address] [place] [address] [id number] BRITTANY WILKERSON Self - patient is the insured Medical (General) History Medical History History ICD Code Diabetes mellitus type 2 currently diet controlled Hypertension COPD/chronic bronchitis RICARDA/CPAP Arthritis Depression Sinus problems BPH GERD Surgical History Surgery Date(Month/Year)
--- OUTSIDE RECORDS SUMMARY | 2025-08-21 16:26 | XMS_ITS | Encounter Summary ---
Author Organization [employer] [facility] Address [address] [place] [address] [address] [place] [address] Care Team Providers Care E Commerce Marketing Manager Name Role Phone Dominick Edwards MD Primary Care Provider Jackie Mina Primary Care Provider [phone] Reema Myers NP Primary Care Provider [phone] Encounter Details Date Type Department Care Team (Latest Contact Info) Description 03/21/2021 Abstract [facility] CONVERSIONS Dental, Provider, DDS Social History Tobacco Use Types Packs/Day Years Used Date Smoking Tobacco: Never Assessed Sex and Gender Information Value Date Recorded Sex Assigned at Male 06/23/2022 10:23 AM EDT Legal Sex Male 10:23 AM EDT Gender Identity Male 06/23/2022 10:23 AM EDT Sexual Orientation Straight 06/23/2022 10 :23 AM EDT documented as of this encounter Plan of Treatment Not on file documented as of this encounter Visit Diagnoses Not on filedocumented in this encounter Care Teams E Commerce Marketing Manager Relationship Specialty Start Date End Date Dominick Edwards MD PCP - General Family Medicine 02/10/20 11/05/22 Jackie Quijano FNP [address] [place] [address] PCP - General Family Medicine 11/06/22 04/26/24 Reema Myers NP [address] [place] [address] PCP - General Family Medicine 04/27/24 documented as of this encounter
--- OUTSIDE RECORDS SUMMARY | 2025-08-21 16:26 | XMS_ITS | Encounter Summary ---
Author Organization [employer] [facility] Address [address] [place] [address] [address] [place] [address] Care Team Providers Care Er Rn Name Role Phone Dominick Edwards MD Primary Care Provider Jackie Mina Primary Care Provider [phone] Reema Myers NP Primary Care Provider [phone] Encounter Details Date Type Department Care Team (Latest Contact Info) Description 08/25/2019 Abstract [facility] CONVERSIONS Dental, Provider, DDS Social History Tobacco [...] on filedocumented in this encounter Care Teams Er Rn Relationship Specialty Start Date End Date Dominick Edwards MD PCP - General Family Medicine 02/10/20 11/05/22 Jackie Quijano FNP [address] [place] [address] PCP - General Family Medicine 11/06/22 04/26/24 Reema Myers NP [address] [place] [address] PCP - General Family Medicine 04/27/24 documented as of this encounter
--- OUTSIDE RECORDS SUMMARY | 2025-08-21 16:26 | XMS_ITS | Data Portability ---
Author Organization [place] - [facility], [facility] Address 100 [facility] 100 [place] [address] Care Team Providers Care Mail Superintendent Name Role Phone Unavailable Primary Care Provider [phone] Assessment Encounter Date Assessment Date Assessment LastModified by Organization Details LastModified Time 07/25/2024 07/25/2024 Patient feels the left facial mass has resolved. The imaging confirms there is no lesion in his parotid gland. My examination today was also benign. He may now follow-up on an as-needed basis [email or web address] Not available 07/25/2024 13:07:06 Plan of Treatment Reminders Order Date Submit Date Provider Last Modified By Organization Details Last Modified Time Details Appointments None recorded. Lab None recorded. Referral None recorded. Procedures None recorded. Surgeries None recorded. Imaging CT, neck, soft tissue, w/ contrast - Left parotid tenderness , possible mass. Please copy report to Dr. Boston 2023 024 [email or web address] [facility] [place], [facility], [place], [address], 11:56:08 Medication Orders None recorded. Patient TargetsNo targets recorded. Patient InstructionsNo instructions recorded. Reason for Referral None Reported. Results Created Date Observation Date Name Description Value Unit Range Abnormal Flag Note LastModifiedBy Organization Detail LastModifiedTime 06/13/2006/08/2024 audio gram No observ ation record ed. [email or web address] [facility] [address] [facility] 100, [place], [address], 06/13/2024 21:08:08 07/11/20 24 07/08/2024 CT, neck, soft tissu e, w/ contr ast No observ ation record ed. [email or web address] [facility] [place] [address], [address], 07/11/2024 17:27:04 07/12/20 24 07/12/2024 CT, neck, soft tissu e, w/ contr ast No observ ation record ed. [facility] [place] [address] [place] [address], [place], [address], 07/14/2024 14:18:06 Result Notes None recorded. Problems Name Problem SNOMED Code Status Onset Date Resolution Date Notes Provider Name and Address Organization Details Recorded Time Sensorine ural hearing loss of bilateral ears 844046862 Active 2016 Sensorine ural hearing loss, bilateral ; Note: Date Diagnosed : 7 1:51 PM (H90.3) Not Available Pending sale to [facility] 4 03:08:06 Sensorine ural hearing loss 50468589 Active 2016 Sensory hearing loss NOS; Note: Date Diagnosed : 7 2:04 PM (H90.5) Not Available Pending sale to [facility] 4 03:08:07 Bilateral tinnitus 24136047282 02 Active 2016 Tinnitus, bilateral ; Note: Date Diagnosed : 7 2:17 PM (H93.13) Not Available Pending sale to [facility] 4 03:08:07 Headache 11599613 Active 2019 Facial pain NOS; Note: Date Diagnosed : 09/20/2019 12:40 PM (R51) Headach e; Note: Date Diagnosed : 09/20/2019 12:40 PM (R51) Not Available Pending sale to [facility] 4 03:08:05 Nasal congestio n 81035273 Active 2019 Nasal congestio n; Note: Date Diagnosed : 09/20/2019 12:40 PM (R09.81) Not Available Pending sale to [facility] 4 03:08:05 Acute maxillary sinusitis 16788276 Active 2019 Acute recurrent maxillary sinusitis ; Note: Date Diagnosed : 05/03/2020 2:52 PM (J01.01) Not Available Pending sale to [facility] 4 03:08:06 Polyp of nasal cavity and/or nasal sinus 748593157 Active 2019 Nasal polyp, unspecifi ed; Note: Date Diagnosed : 05/03/2020 2:52 PM (J33.9) Not Available [facility] 4 03:08:06 Acute ethmoidal sinusitis 48620759 Active 2019 Acute recurrent ethmoidal sinusitis ; Note: Date Diagnosed : 05/03/2020 2:52 PM (J01.21) Not Available Pending sale to [facility] 4 03:08:07 Postopera tive visit 535920689 Active 2019 Post Op Visit; Note: Date Diagnosed : 05/10/2020 6:36 AM (V67.0) Not Available Pending sale to [facility] 4 03:08:07 Mass of head and/or neck 453375209 Active 2023 LUCIANO GARCIA MD [address], [address] , [facility] 4 10:51:28 Problem Notes None recorded. Procedures Surgical History Date Name Laterality Status Provider Name and Address Organization Details Recorded Time 06/08/20 24 Air only Audio - 39199 completed HUNTER RYAN, [address], [address], [facility] 06/08/2024 09:53:04 06/08/20 24 Tympanometry - 90038 completed HUNTER ESTELITAENDRE, AUD 100 [facility],[address], [address], [facility] 06/08/2024 09:53:16 Imaging Results None recorded. Procedure Notes None recorded. Medical Equipment None Reported. Allergies No known drug allergies Medications Name Sig Start Date Stop Date Status Note LastModified by Organization Details LastModified Time multivita min tablet 07/22 completed Medicati on ID: [id number] D uration Value: 30 Brand Name: multivit dudley Sen d Method: E-Prescr ibed Sub s Allowed: subs OK Speci al Instruct ion: TK 1 T PO D Medica tionGene ricName: multivit dudley Not Available Not Available Not Available atorvasta tin 40 mg tablet TAKE 1 TABLET BY MOUTH EVERYDAY AT BEDTIME active Not Available Not Available No t Available metformin 500 mg tablet 07/22 completed Medicati on ID: [id number] D uration Value: 30 Brand Name: metformi n Send Method: E-Prescr ibed Sub s Allowed: subs OK Speci al Instruct ion: TK 1 T PO BID WITH BREAKFAS T AND DINNER M edicatio nGeneric Name: formi n Not Available Not Available Not Available atorvasta tin 80 mg tablet 07/25 completed Not Available Not Available Not Available oxcarbaze pine 150 mg tablet TAKE 1 TABLET BY MOUTH TWICE DAILY active Not Available Not Available No t Available clonidine HCl 0.1 mg tablet TAKE 1 TABLET BY MOUTH THREE TIMES DAILY NEEDED FOR ANXIETY active Not Available Not Available No t Available prednison e 10 mg tablet 06/08 completed Not Available Not Available Not Available nicotine 14 mg/24 hr daily transderm al patch 07/25 completed Not Available Not Available Not Available donepezil 5 mg tablet TAKE 1 TABLET BY MOUTH EVERY NIGHT AT BEDTIME 06/08 completed Not Available Not Available Not Available azithromy shira 250 mg tablet TAKE 2 TABLETS BY MOUTH FOR 1 DAY THEN TAKE 1 TABLET BY MOUTH DAILY FOR 4 DAYS 06/08 completed Not Available Not Available Not Available donepezil 10 mg tablet TAKE 1 TABLET BY MOUTH EVERY NIGHT AT BEDTIME active Not Available Not Available No t Available FreeStyle Lancets 28 gauge USE TWICE DAILY active Not Available Not Available No t Available sertralin e 100 mg tablet TAKE 1 AND 1/2 TABLETS BY MOUTH EVERY MORNING active Not Available Not Available No t Available hydroxyzi ne pamoate 50 mg capsule 09/20 completed Medicati on ID: [id number] D uration Value: 30 Reason: () Brand Name: hydroxyz ine pamoate Send Method: E-Prescr ibed Sub s Allowed: subs OK Medic ationGen ericName : hydroxyz ine pamoate Not Available Not Available Not Available acetamino phen 300 mg-codein e 30 mg tablet 09/20 completed Medicati on ID: [id number] D uration Value: 11 Reason: () Brand Name: acetamin ophen-co deine Se nd Method: E-Prescr ibed Sub s Allowed: subs OK Medic ationGen ericName : acetamin ophen-co deine Not Available Not Available Not Available omeprazol e 40 mg capsule,d elayed release TAKE 1 CAPSULE BY MOUTH DAILY active Not Available Not Available No t Available risperido ne 3 mg tablet 06/08 completed Medicati on ID: [id number] D uration Value: 30 Brand Name: risperid one Send Method: E-Prescr ibed Sub s Allowed: subs OK Speci al Instruct ion: TK 1 T PO D AT 7PM Medi cationGe nericNam e: risperid one Not Available Not Available Not Available amoxicill in 500 mg tablet 1 tablet by mouth 06/08 completed Medicati on ID: [id number] Josie vivar By Name: Beckie Burden nd Name: amoxicil andrade Send Method: E-Prescr ibed Sub s Allowed: subs OK Medic ationGen ericName : amoxicil andrade Not Available Not Available Not Available tamsulosi n 0.4 mg capsule 06/08 completed Medicati on ID: [id number] D uration Value: 30 Brand Name: tamsulos in Send Method: E-Prescr ibed Sub s Allowed: subs OK Medic ationGen ericName : tamsulos in Not Available Not Available Not Available trazodone 100 mg tablet TAKE 3 TABLETS BY MOUTH AT BEDTIME. INCREASE DOSE active Not Available Not Available No t Available pantopraz ole 40 mg tablet,de layed release 06/08 completed Not Available Not Available Not Available Ear Drops (carbamid e peroxide) 6.5 % 06/08 completed Not Available Not Available Not Available gabapenti n 300 mg capsule active Not Available Not Available Not Available omeprazol e 20 mg capsule,d elayed release TAKE 1 CAPSULE BY MOUTH TWICE DAILY 07/25 completed Not Available Not Available Not Available furosemid e 20 mg tablet 07/25 completed Medicati on ID: [id number] D uration Value: 30 Brand Name: jessica de Send Method: E-Prescr ibed Sub s Allowed: subs OK Speci al Instruct ion: TK 1 T PO QD Medic ationGen ericName : furosemi de Not Available Not Available Not Available gabapenti n 100 mg capsule TAKE 2 CAPSULES BY MOUTH THREE TIMES DAILY 06/08 completed Not Available Not Available Not Available albuterol sulfate HFA 90 mcg/actua tion aerosol inhaler INHALE 2 PUFFS BY MOUTH EVERY 6 HOURS NEEDED FOR WHEEZING active Not Available Not Available No t Available fluticaso ne propionat e 50 mcg/actua tion nasal spray,tulio pension ADMINIST ER 2 SPRAYS IN EACH NOSTRIL ONCE PER DAY 07/22 completed Not Available Not Available Not Available risperido ne 1 mg tablet TAKE 1 TABLET BY MOUTH EVERY MORNING 06/08 completed Not Available Not Available Not Available sulindac 200 mg tablet 09/20 completed Medicati on ID: [id number] D uration Value: 30 Reason: () Brand Name: sulindac Send Method: E-Prescr ibed Sub s Allowed: subs OK Medic ationGen ericName : sulindac Not Available Not Available Not Available risperido ne 0.5 mg tablet TAKE 1 TABLET BY MOUTH EVERY MORNING 06/08 completed Not Available Not Available Not Available amoxicill in 875 mg-potass ium clavulana te 125 mg tablet TAKE 1 TABLET BY MOUTH TWICE DAILY FOR 5 DAYS 06/08 completed Not Available Not Available Not Available oxycodone 5 mg tablet 1 tablet by mouth 06/08 completed Medicati on ID: [id number] D uration Value: 3 Prescri bed By Name: Beckie Burden nd Name: oxycodon e Send Method: E-Prescr ibed Sub s Allowed: subs OK Medic ationGen ericName : oxycodon e Not Available Not Available Not Available valsartan 40 mg tablet 09/20 completed Medicati on ID: [id number] D uration Value: 30 Reason: () Brand Name: valsarta n Send Method: E-Prescr ibed Sub s Allowed: subs OK Speci al Instruct ion: TK 1 T PO QD Medic ationGen ericName : valsarta n Not Available Not Available Not Available ciproflox acin 0.3 %-dexamet hasone 0.1 % ear drops,tulio pension SHAKE LIQUID AND INSTILL 4 DROPS TO AFFECTED EAR TWICE DAILY FOR 7 DAYS 06/08 completed Not Available Not Available Not Available memantine 10 mg tablet TAKE 1 TABLET BY MOUTH TWICE DAILY active Not Available Not Available No t Available memantine 5 mg tablet 06/08 completed Not Available Not Available Not Available FreeStyle Lite Strips USE TWICE DAILY active Not Available Not Available No t Available Virtussin AC 10 mg-100 mg/5 mL oral liquid 06/08 completed Medicati on ID: [id number] D uration Value: 4 Brand Name: Virtussi n AC Send Method: E-Prescr ibed Sub s Allowed: subs OK Medic ationGen ericName : Virtussi n AC Not Available Not Available Not Available Breo Ellipta 200 mcg-25 mcg/dose powder for inhalatio n 07/22 completed Medicati on ID: [id number] D uration Value: 30 Brand Name: Breo Ellipta Send Method: E-Prescr ibed Sub s Allowed: subs TERRY Bui al Instruct ion: INHALE 1 PUFF D Medica tionGene ricName: Breo Ellipta Not Available Not Available Not Available Spiriva Respimat 1.25 mcg/actua tion solution for inhalatio n 06/08 completed Medicati on ID: [id number] D uration Value: 30 Brand Name: Spiriva Respimat Send Method: E-Prescr ibed Sub s Allowed: subs OK Speci al Instruct ion: INL 2 PFS PO QD Medic ationGen ericName : Spiriva Respimat Not Available Not Available Not Available nicotine (polacril ex) 2 mg buccal mini lozenge DISSOLVE 1 LOZENGE EVERY 2 HOURS NEEDED FOR SMOKING CESSATIO N 07/25 completed Not Available Not Available Not Available Trelegy Ellipta 200 mcg-62.5 mcg-25 mcg powder for inhalatio n active Not Available Not Available Not Available Daily-Vit e (with folic acid) 400 mcg tablet TAKE 1 TABLET BY MOUTH EVERY DAY active Not Available Not Available No t Available Vitals None Recorded Social History None recorded. Functional Status None recorded. Mental Status None recorded. Family History Relationship Description Onset Age of this Age Resolved Age Notes LastModified by Organization Details LastModified Time Mother Diabetes mellitus [email or web address] Not available 09/2023 12:54:20 Medical History Condition Response Allergies/Hayfever N Heart Problems N Anxiety Y Tonsil Infections N Emphysema Y Migraines N Thyroid Problems N COPD Y Depression Y Developmental Delay N Glaucoma N Nasal or Sinus Problems N Anemia N Immune System Disorder N Anesthesia Complications N Heart Attack ([place]) N Other Skin Condition N Diabetes N Rhinitis N Bleeding Disorder N Food Allergy N Hearing Loss Y Arthritis Y Hyperlipidemia N Cancer N Stroke N Dementia Y Nasal polyps N Asthma N Sleep Disorder Y High Cholesterol Y GERD/Reflux Y Liver Disease N Headaches Y Fibromyalgia N Hypertension Y Speech Delay N Kidney Disease N Past Encounters Encounter ID Performer Location Encounter Start Date Encounter Closed Date Diagnosis/Indication Diagnosis SNOMED-CT Code Diagnosis ICD10 Code Diagnosis IMO Codes Diagnosis Note [id number] LUCIANO GARCIA MD [facility] [address] [address] 06/08/2024 09:21:31 06/08/2024 10:57:40 Sensorineural hearing loss of bilateral ears 389793189 H90.3 Right Ear:Mild sloping to a severe SNHL.Type C tympanogra m.Left Ear:Mild sloping to a severe SNHL.Type A tympanogra m.Patient' s audiogram shows bilateral moderate sensorineu ral hearing loss with well maintained speech discrimina tion. There is enough hearing loss to affect day-to-day hearing performanc e. We discussed in detail the pros and cons of amplificat ion (hearing aids). We discussed the connection between untreated hearing loss and increased risk of dementia, falling and accidents. After full discussion , the patient expressed interest in learning more about amplificat ion options. Accordingl y I have provided a copy of the audiogram, a list of [facility] hearing aid providers, and medical clearance for amplificat ion so the patient can pursue this at their convenien e. Patient is medically cleared for amplificat ion bilaterall y. Bilateral tinnitus 98960 26000 102 H93.13 Mass of he ad and/or neck 065778079 R22.0 Patient has some thickening along superior margin of the parotid gland of the left cheek. I had Dr. Boston take a look at this, who recommende d CT scan of the neck with contrast. I will order this and have him follow-up with Dr. Boston to review the results. [id number] BHAVIN BOSTON MD [facility] [address] [place] [address] 07/25/2024 12:33:43 07/25/2024 13:08:08 Mass of head and/or neck 953044260 R22.0 Health Concerns Section Related Observation LastModified by Organization Detai ls LastModified Time None Recorded Concern Status LastModified by Organization Details LastModified Time None Recorded Advance Directives Directive None Recorded Payers Insurance Date Sequence Insurance Name Policy Number Policy Hutchinson Covered Member ID Hutchinson Member ID Guarantor Name 07/24/2024 1 [facility] - DOS ON OR AFTER 2022 - MEDICARE ADVANTAGE [place] (MEDICARE REPLACEMENT/AD VANTAGE - PPO) Junior Hansen [id number] Junior Hansen Notes Date Note Type Note Provider Name and Address Organization Details Recorded Time 06/08/2024 text/html Former patient of Dr. Ayon with history of sinonasal polyposis who has undergone sinus surgery with her in the past in 2019. He comes in today accompanied by his cousin who is also his EDUCATIONAL PSYCHOLOGY PROFESSOR. Patient does have significant hearing loss. He had hearing aids in the past, but not for 8 years. He is having difficulty hearing in most listening environments.In addition, they come in to discuss some pain he has had in his left cheek area. They are not sure but they think it has been around for about 6 to 8 weeks or so. They were seen by a local dentist who referred him to an oral surgeon but that has not been carried out yet. He has not been on any antibiotics. LUCIANO GARCIA MD [address] [place] [address], [place], [address], [place] [facility] 06/08/2024 10:56:02 07/25/2024 text/html ROS as noted in the HPI Prydeinig - translatingPatient of Dr. Garcia 06/08/2024 Dr. Garcia, bilateral amplification evaluation recommended. Patient self reported tenderness of the left neck skin near parotid, CT neck requested.07/11/2024 [facility] lymphadenopathy or other acute abnormality. Incidental finding of inflammatory changes, mild mucosal thickening involving maxillary, ethmoid, sphenoid bilaterally Former patient of Dr. Ayon with history of sinonasal polyposis who has undergone sinus surgery with her in the past in 2019 BHAVIN BOSTON MD [address] [place] [address], [place], [address], [facility] - [facility] 07/25/2024 13:08:24
--- OUTSIDE RECORDS SUMMARY | 2025-08-21 16:27 | XMS_ITS | Encounter Summary ---
Author Organization [employer] Address [address] [facility] 7t [place] [address] Care Team Providers Care Geospatial Extractor Analysis Name Role Phone Reema Myers KRYSTIAN Primary Care Provider [phone] Encounter Details Date Type Department Care Team ([facility] Contact Info) Description 05/30/2024 Orders Only [facility] [address] [place] [address] ProviderAstrid MD Social History Tobacco Use Types Packs/Day Years Used Date Smoking Tobacco: Every Day Cigarettes 0.5 53 Passive Smoke Exposure: Current Smokeless Tobacco: Never Alcohol Use Standard Drinks/Week Comments Never 0 (1 standard drink = 0.6 oz pur e alcohol) Alcohol Answer Date Recorded Frequency of Alcohol Consumption Not on file 03/18/2024 Average Number of Drinks Not on file 024 Frequency of Binge Drinking Not on file 02/22 Score 0 03/18/2024 Depression Answer Date Recorded Patient Health Questionnaire-9 Score 0 11/04/2023 Patient Health Questionnaire-9 Score 0 11/04/2023 Last PHQ-9: Questionnaire Data Not on file 0 11/04/2023 Housing Stability Answer Date Recorded What is your housing situation today? I have silvanojuleinne castrejon 06/09/[address] you li ve. Do you have problems with any of the following? None of the above 06/09/2023 Food Insecurity Answer Date Recorded Within the past 12 months, y ou worried that your food would run out before you got money to buy more: Never True 06/09/2023 Within the past 12 months,th e food you bought just didn't last and you didn't have enough money to get more: Never True Transportation Answer Date Recorded In the past 12 months, has l ack of transportation kept you from medical appts, meetings, work or from getting things needed for daily living? No 06/09/2023 Utilities Answer Date Recorded In the past 12 months, has t he electric, gas, oil or water company threatened to shut off services in your home? No 06/09/2023 Depression Answer Date Recorded Patient Health Questionnaire-2 Score 0 11/04/2023 Sex and Gender Information Value Date Recorded Sex Assigned at Male 06/23/2022 10:23 AM EDT Legal Sex Male 10:23 AM EDT Gender Identity Male 06/23/2022 10:23 AM EDT Sexual Orientation Straight 06/23/2022 10 :23 AM EDT documented as of this encounter Plan of Treatment Not on file documented as of this encounter Procedures Procedure Name Priority Date/Time Associated Diagnosis Comments COLONOSCOPY Routine 06/17/2022 2:40 PM EDT documented in this encounter Results * Hm Colonoscopy (06/17/2022 2:40 PM EDT) Colonoscopy Normal Normal us Historical Provider HEALTH MAINTENANCE Edited Result - Final documented in this encounter Visit Diagnoses Not on filedocumented in this encounter Additional Health Concerns Assessment Noted Time PHQ-9 Depression Total Score: 0 11/04/19 2:13 PM EDT documented as of this encounter Care Teams Geospatial Extractor Analysis Relationship Specialty Start Date End Date Reema Myers NP [address] [place] [address] PCP - General Family Medicine 04/27/24 documented as of this encounter
--- OUTSIDE RECORDS SUMMARY | 2025-08-21 16:27 | XMS_ITS | Encounter Summary ---
Author Organization [employer] Address [address] [facility] 7t [place] [address] Care Team Providers Care Electrical Continuity Inspector Name Role Phone Lucia Reema KRYSTIAN Primary Care Provider [phone] Reason for Visit * Reason Comments Med Refill Encounter Details Date Type Department Care Team ([facility] st Contact Info) Description 07/02/2024 Refill [facility] MEDICINE [address] [place] [address] Jackie Quijano FNP [address] [place] [address] Social History Tobacco Use Types Packs/Day Years [...] is your housing situation today? I have silvano castrejon 06/09/[address] you [...] Time PHQ-9 Depression Total Score: 0 11/04/19 24 2:13 PM EDT documented as of this encounter Care Teams Electrical Continuity Inspector Relationship Specialty Start Date End Date Reema Myers NP [address] [place] [address] PCP - General Family Medicine 04/27/24 documented as of this encounter
--- OUTSIDE RECORDS SUMMARY | 2025-08-21 16:27 | XMS_ITS | Clinical Summary ---
Author Organization [address] [place] [address] Address [address] [place] [address] Phone Care Team Providers Care Senior Engineering Tech Name Role Phone Kailee Barker Primary Care Provider [phone] Allergies No known active allergies Medications fluticasone propionate (FLONASE) 50 mcg/actuation nasal spray Administer 1 spray into each nostril 1 (one) time each day. Shake gently. Before first use, prime pump. After use, clean tip and replace cap. Active fluticasone-ume clidinium-vilan terol (TRELEGY ELLIPTA) 200-62.5-25 mcg inhaler Inhale by mouth. Act abida donepeziL (ARICEPT) 10 mg tablet Take 1 tablet (10 mg total) by mouth at bedtime. Active MULTIVITAMIN ORAL Take 1 tablet by mouth 1 (one) time each day. Active finasteride (PROSCAR) 5 mg tablet Take 1 tablet (5 mg total) by mouth 1 (one) time each day. Do not crush, chew, or split. Active atorvastatin (LIPITOR) 40 mg tablet Take 1 tablet (40 mg total) by mouth at bedtime. Active bisacodyL (DULCOLAX) 5 mg EC tablet Take 2 tablets by mouth right before beginning bowel prep. See instructions provided by the office 2 tablet 5 Active polyethylene glycol (Golytely) 236-22.74-6.74 -5.86 gram solution Take 4L by mouth once for one dose. May substitue any PEG. Starting at 6PM the night before your procedure drink 1 8oz glasses at your own pace until you complete half of the gallon. Finish 2nd half of the gallon 5 hours before your procedure. 4000 mL 04/22/202 5 Active bisacodyL (DULCOLAX) 5 mg EC tablet Take 2 tablets by mouth right before beginning bowel prep. See instructions provided by the office 2 tablet 5 Active polyethylene glycol (Golytely) 236-22.74-6.74 -5.86 gram solution Take 4L by mouth once for one dose. May substitue any PEG. Starting at 6PM the night before your procedure drink 1 8oz glasses at your own pace until you complete half of the gallon. Finish 2nd half of the gallon 5 hours before your procedure. 4000 mL 5 Active Active Problems No known active problems Encounters Date Type Department Care Team Description 07/19/2025 Telephone Gastroenterology - 299 [facility] [address] [facility] [address] [place] [address] Yash Ortiz MD 05/22/2025 5:53 AM EDT - 05/22/2025 10:58 AM EDT Emergency [facility] Emergency [address] [place] [address] Yaritza Flores MD Injury of head, initial encounter (Primary Dx); Facial laceration, initial encounter Discharge Disposition: Home or Self Care from Last 3 Months Surgical History Surgery Date Site/Laterality Comments COLONOSCOPY Medical History Medical History Date Comments Prediabetes Urinary incontinence COPD (chronic obstructive pulmonary disease) (CM S/HCC V24, CMS/HCC V28) Depression BPH (benign prostatic hyperplasia) Social History Tobacco Use Types Packs/Day Years Used Date Smoking Tobacco: Every Day Cigarettes Smokeless Tobacco: Never Tobacco Cessation:Ready to Q uit: Not Asked; Counseling Given: Not Answered Alcohol Use Standard Drinks/Week Comments Never 0 [...] Orientation Straight 09/02/2024 1: 14 PM EST Last Filed Vital Signs Vital Sign Reading Time Taken Comments Blood Pressure 126/97 05/22/2025 10:57 AM EDT Pulse 78 05/22/2025 10:57 AM EDT Temperature 36.6 C (97.9 F) 05/22/2025 10:57 AM EDT Respiratory Rate 18 05/22/2025 10:57 AM EDT Oxygen Saturation 99% 05/22/2025 10:57 AM EDT Inhaled Oxygen Concentration - - Weight 58.5 kg (129 lb) 05/22/2025 5:28 AM EDT Height 170.2 cm (5' 7 ) 05/22/2025 5:28 AM EDT Body Mass Index 20.2 05/22/2025 5:28 AM EDT Plan of Treatment Upcoming Encounters Date Type Department Care Team (Late st Contact Info) Description 03/27/2026 3:00 PM EDT Consult Gastroenterology - 299 [place] [address] [facility] [address] [place] [id number] Geetha Clark NP 299 [facility] [address] [place] [address] Health Maintenance Due Date Last Done Comments Diabetes: Annual Foot Exam 1966 Diabetes: Annual Retina Eye Exam 1966 RSV Immunization Adult Patients (1 - Risk 50-74 years 1-dose series) 2006 Lung Cancer Screening (Low Dose CT) 07/27/2022 Medicare Annual Wellness Visit 07/27/2022 Social Influencers of Health Screening 07/27/2022 Depression Screening 08/24/2024 COVID-19 Vaccine ( season) 2025 08/14/2023, 08/31/2022, 08/21/2021, Additional history exists Influenza Vaccine (#1) 2025 , 08/14/2023, 08/20/2021, Additional history exists Diabetes: Blood Sugar Control Test (HGBA1C) 05/26/2025 11/24/2024, 10/12/2024, 06/20/2024, Additional history exists Diabetes: Annual Urine Albumin-Creatinine Ratio (uACR) 06/20/2025 06/20/2024 Falls Risk Assessment 03/08/2026 03/08/2025 Diabetes: Annual GFR (Glomerular Filtration Rate) 05/15/2026 05/15/2025, 11/24/2024, 06/20/2024 Hypertension/CHF/CAD Annual BMP Blood Test 05/15/2026 05/15/2025, 11/24/2024, 06/20/2024 Cholesterol Screening (Lipid Panel) 11/24/2029 11/24/2024, 06/20/2024, 06/20/2024, Additional history exists DTaP,Tdap,and Td Vaccines (4 - Td or Tdap) 06/20/2034 06/20/2024, 12/06/2014, 01/23/2013 Colorectal Cancer Screening: Colonoscopy 03/08/2035 03/08/2025 Hepatitis C Screening Completed 06/20/2024 Pneumococcal Vaccine: 50+ Years Completed 06/20/2024, 01/02/2022, 06/20/2016 Zoster Vaccines Completed 06/20/2024, 01/12/2022 Abdominal Aortic Aneurysm (AAA) Screen Completed 09/16/2024 HIB Vaccines Aged Out No longer eligi ble based on patient's age to complete this topic HPV Vaccines Aged Out No longer eligi ble based on patient's age to complete this topic Hepatitis A Vaccines Aged Out No long er eligible based on patient's age to complete this topic Hepatitis B Vaccines Aged Out No long er eligible based on patient's age to complete this topic IPV Vaccines Aged Out No longer eligi ble based on patient's age to complete this topic MMR Vaccines Aged Out No longer eligi ble based on patient's age to complete this topic Meningococcal ACWY Vaccine Aged Out N o longer eligible based on patient's age to complete this topic Meningococcal B Vaccine Aged Out No l onger eligible based on patient's age to complete this topic RSV Immunization Patients Under 20 months Aged Out No longer eligible based on patient's age to complete this topic Varicella Vaccines Aged Out No longer eligible based on patient's age to complete this topic Procedures Procedure Name Priority Date/Time Associated Diagnosis Comments HC REPAIR WOUND LEVEL 1 Routine 05/22/2025 10:46 AM EDT NV REPAIR INTERMEDIATE WOUNDS FACE/EARS/EYELID/NOSE/ LIPS/MUC MEMB <= 2.5 CM Routine 05/22/2025 10:46 AM EDT HC REPAIR WOUND LEVEL 1 Routine 05/22/2025 10:44 AM EDT NV REPAIR SPRFCL WD SIMPLE FACE/EARS/EYELIDS/NOSE /LIPS/MUC MEMB 2.6-5.0 CM Routine 05/22/2025 10:[address] MAXILLOFACIAL WO CONTRAST STAT 05/22/2025 9:[address] HEAD WO CONTRAST STAT 05/22/2025 9 :[address] CERVICAL SPINE WO CONTRAST STAT 05/22/2025 9:25 AM EDT COMPREHENSIVE METABOLIC PANEL STAT 05/15/2025 1:32 PM EDT COLONOSCOPY Routine 03/08/2025 3:42 PM EDT Encounter for screening for malignant neoplasm of colon HEMOGLOBIN A1C Routine 11/24/2024 11:48 AM EDT Mild semantic dementia with psychotic disturbance (CMS/HCC V24, CMS/HCC V28) LIPID PANEL WITH REFLEX TO DIRECT LDL Routine 11/24/2024 11:48 AM EDT Mild semantic dementia with psychotic disturbance (CMS/HCC V24, CMS/HCC V28) from Last 3 Months or Most Recently Relevant to Health Maintenance Results * NV REPAIR INTERMEDIATE WOUNDS FACE/EARS/EYELID/NOSE/LIPS/MUC MEMB <= 2.5 CM, HC REPAIR WOUND LEVEL 1 (05/22/2025 10:46 AM EDT) Narrative Yaritza Flores MD - 05/22/2025 10:46 AM EDT Yaritza Flores MD 05/22/2025 10:51 AM Laceration Repair Date/Time: 05/22/2025 10:46 AM Performed by: Yaritza Flores MD Authorized by: Yaritza Flores MD Consent: Consent given by: Patient Anesthesia: Anesthesia method: Local infiltration Local anesthetic: Lidocaine 1% WITH epi Laceration details: Location: Face Face location: L eyebrow Length (cm): 2.5 Depth (mm): 5 Exploration: Hemostasis achieved with: Direct pressure Imaging outcome: foreign body not noted Wound extent: no foreign bodies/material noted and no muscle damage noted Contaminated: no Treatment: Area cleansed with: Saline (Hydrogen peroxide) Irrigation solution: Sterile saline Irrigation volume: 10 Irrigation method: Pressure wash Debridement: None Undermining: None Skin repair: Repair method: Sutures Suture size: 5-0 Suture material: Prolene Suture technique: flaps realigned. Number of sutures: 5 Approximation: Approximation: Close Repair type: Repair type: Intermediate Post-procedure details: Dressing: Antibiotic ointment Procedure completion: Tolerated Comments: Stellate/flap laceration, multiple flaps realigned us Yaritza Flores MD IN CLINIC/BEDSIDE ORDERABLE S Final Result * NV REPAIR SPRFCL WD SIMPLE FACE/EARS/EYELIDS/NOSE/LIPS/MUC MEMB 2.6-5.0 CM, HC REPAIR WOUND LEVEL 1(05/22/2025 10:44 AM EDT) Narrative Yaritza Flores MD - 05/22/2025 10:44 AM EDT Yaritza Flores MD 05/22/2025 10:51 AM Laceration Repair Date/Time: 05/22/2025 10:44 AM Performed by: Yaritza Flores MD Authorized by: Yaritza Flores MD Consent: Consent obtained: Verbal Consent given by: Patient Anesthesia: Anesthesia method: Local infiltration Local anesthetic: Lidocaine 1% WITH epi Laceration details: Location: Face Face location: R eyebrow Length (cm): 5 Depth (mm): 7 Pre-procedure details: Preparation: Patient was prepped and draped in usual sterile fashion Exploration: Hemostasis achieved with: Direct pressure Wound exploration: entire depth of wound visualized Wound extent: no foreign bodies/material noted and no muscle damage noted Contaminated: no Treatment: Area cleansed with: Saline (Hydrogen peroxide) Amount of cleaning: Standard Irrigation solution: Sterile saline Irrigation volume: 10 Irrigation method: Pressure wash Debridement: None Skin repair: Repair method: Sutures Suture size: 5-0 Suture material: Prolene Suture technique: Simple interrupted Number of sutures: 6 Approximation: Approximation: Close Repair type: Repair type: Simple Post-procedure details: Dressing: Antibiotic ointment Procedure completion: Tolerated us Yaritza Flores MD IN CLINIC/BEDSIDE ORDERABLE S Final Result * CT Cervical Spine wo Contrast (05/22/2025 9:25 AM EDT) Anatomical Region Laterality Modality Spine, C-spine Computed Tomogra phy 05/22/2025 9:44 AM EDT Impressions 05/22/2025 9:45 AM EDT No acute cervical spine fracture. -------- FINAL REPORT -------- Dictated By: GUALBERTO AYERS Dictated Date: 05/22/2025 09:44 ET Assigned Physician: GUALBERTO AYERS Reviewed and Electronically Signed By: GUALBERTO AYERS Signed Date: 05/22/2025 09:45 ET Workstation ID: [id number] Transcribed By: Self Edit Transcribed Date: 05/22/2025 09:44 ET Narrative 05/22/2025 9:45 AM EDT PROCEDURE: Cervical spine CT INDICATION: Fracture TECHNIQUE: Noncontrast CT of the cervical spine with multiplanar reformats. The examination was performed utilizing dose reduction techniques. COMPARISON: No priors available. FINDINGS: No acute fracture or prevertebral swelling. Straightening of the normal cervical lordosis with levoconvex curvature. Multilevel degenerative changes are seen throughout the cervical spine with uncovertebral spurring and facet arthropathy present. No pneumothorax at the lung apices. Paraspinal muscles are normal. Procedure Note Gualberto Ayers MD - 05/22/2025 PROCEDURE: Cervical spine CT INDICATION: Fracture TECHNIQUE: Noncontrast CT of the cervical spine with multiplanarreformats. The examination was performed utilizing dose reduction techniques. COMPARISON: No priors available. FINDINGS: No acute fracture or prevertebral swelling. Straightening of the normal cervical lordosis with levoconvex curvature. Multilevel degenerative changes are seen throughout the cervical spinewith uncovertebral spurring and facet arthropathy present. No pneumothorax at the lung apices. Paraspinal muscles are normal. IMPRESSION: No acute cervical spine fracture. -------- FINAL REPORT -------- Dictated By: GUALBERTO AYERS Dictated Date: 05/22/2025 09:44 ET Assigned Physician: GUALBERTO AYERS Reviewed and Electronically Signed By: GUALBERTO AYERS Signed Date: 05/22/2025 09:45 ET Workstation ID: [id number] Transcribed By: Self Edit Transcribed Date: 05/22/2025 09:44 ET Yaritza Flores MD IMG CT PROCEDURES Final Res ult * CT Maxillofacial wo Contrast (05/22/2025 9:25 AM EDT) Anatomical Region Laterality Modality Head and Neck Computed Tomogra phy 05/22/2025 9:40 AM EDT Impressions 05/22/2025 9:43 AM EDT No acute fracture or retrobulbar hematoma. Chronic sinusitis. -------- FINAL REPORT -------- Dictated By: GUALBERTO AYERS Dictated Date: 05/22/2025 09:40 ET Assigned Physician: GUALBERTO AYERS Reviewed and Electronically Signed By: GUALBERTO AYERS Signed Date: 05/22/2025 09:43 ET Workstation ID: [id number] Transcribed By: Self Edit Transcribed Date: 05/22/2025 09:40 ET Narrative 05/22/2025 9:43 AM EDT PROCEDURE: Face CT INDICATION: Pain, trauma TECHNIQUE: Noncontrast CT of the face with multiplanar reformats. The examination was performed utilizing dose reduction techniques. Total DLP 1635 COMPARISON: No priors available. FINDINGS: No acute fracture. Scattered mucosal thickening throughout the sinuses with partial opacification of the left maxillary sinus and left greater than right sphenoid sinuses. Evidence of prior sinus surgery with reactive new bone formation around the maxillary and sphenoid sinuses bilaterally. No fluid levels. Soft tissue laceration and swelling seen in the right supraorbital region. Bilateral lens implants. Globes are intact. No retrobulbar hematoma. Skull base soft tissues are within normal limits. Procedure Note Gualberto Ayers MD - 05/22/2025 PROCEDURE: Face CT INDICATION: Pain, trauma TECHNIQUE: Noncontrast CT of the face with multiplanar reformats. The examination was performed utilizing dose reduction techniques. TotalDLP 1635 COMPARISON: No priors available. FINDINGS: No acute fracture. Scattered mucosal thickening throughout the sinuses with partialopacification of the left maxillary sinus and left greater than rightsphenoid sinuses. Evidence of prior sinus surgery with reactive new boneformation around the maxillary and sphenoid sinuses bilaterally. No fluidlevels. Soft tissue laceration and swelling seen in the right supraorbitalregion. Bilateral lens implants. Globes are intact. No retrobulbar hematoma. Skull base soft tissues are within normal limits. IMPRESSION: No acute fracture or retrobulbar hematoma. Chronic sinusitis. -------- FINAL REPORT -------- Dictated By: GUALBERTO AYERS Dictated Date: 05/22/2025 09:40 ET Assigned Physician: GUALBERTO AYERS Reviewed and Electronically Signed By: GUALBERTO AYERS Signed Date: 05/22/2025 09:43 ET Workstation ID: [id number] Transcribed By: Self Edit Transcribed Date: 05/22/2025 09:40 ET Yaritza Flores MD IMG CT PROCEDURES Final Res ult * CT Head wo Contrast (05/22/2025 9:25 AM EDT) Anatomical Region Laterality Modality Head and Neck Computed Tomogra phy 05/22/2025 9:43 AM EDT Impressions 05/22/2025 9:44 AM EDT No acute intracranial abnormality. -------- FINAL REPORT -------- Dictated By: GUALBERTO AYERS Dictated Date: 05/22/2025 09:43 ET Assigned Physician: GUALBERTO AYERS Reviewed and Electronically Signed By: GUALBERTO AYERS Signed Date: 05/22/2025 09:44 ET Workstation ID: [id number] Transcribed By: Self Edit Transcribed Date: 05/22/2025 09:43 ET Narrative 05/22/2025 9:44 AM EDT PROCEDURE: HEAD CT INDICATION: Pain, trauma TECHNIQUE: CT of the head without intravenous contrast. Multiplanar reformats. The examination was performed utilizing dose reduction techniques. Total DLP 1635 COMPARISON: No priors available. FINDINGS: No acute territorial infarct, mass effect, or intracranial hemorrhage. Mild scattered periventricular and subcortical white matter hypodensities are most likely related to chronic small vessel ischemic change. Ventricles are normal in size. No hydrocephalus. Left mastoid effusion. No scalp hematoma or skull fracture. Procedure Note Gualberto Ayers MD - 05/22/2025 PROCEDURE: HEAD CT INDICATION: Pain, trauma TECHNIQUE: CT of the head without intravenous contrast. Multiplanarreformats. The examination was performed utilizing dose reductiontechniques. Total DLP 1635 COMPARISON: No priors available. FINDINGS: No acute territorial infarct, mass effect, or intracranial hemorrhage. Mild scattered periventricular and subcortical white matter hypodensitiesare most likely related to chronic small vessel ischemic change. Ventricles are normal in size. No hydrocephalus. Left mastoid effusion. No scalp hematoma or skull fracture. IMPRESSION: No acute intracranial abnormality. -------- FINAL REPORT -------- Dictated By: GUALBERTO AYERS Dictated Date: 05/22/2025 09:43 ET Assigned Physician: GUALBERTO AYERS Reviewed and Electronically Signed By: GUALBERTO AYERS Signed Date: 05/22/2025 09:44 ET Workstation ID: [id number] Transcribed By: Self Edit Transcribed Date: 05/22/2025 09:43 ET Yaritza Flores MD IM CT PROCEDURES Final Res ult * (ABNORMAL) Comprehensive metabolic panel (05/15/2025 1:32 PM EDT) Sodium 138 133 - 145 mmol/L LAB CHEMISTRY METHOD 05/15/2025 3:13 PM EDT [facility] Potassium 3.8 3.5 - 5.5 mmol/L LAB CHEMISTRY METHOD 05/15/2025 3:13 PM EDT [facility] Chloride 104 96 - 110 mmol/L LAB CHEMISTRY METHOD 05/15/2025 3:13 PM EDT [facility] CO2 30 21 - 32 mmol/L LAB CHEMISTRY METHOD 05/15/2025 3:13 PM EDT [facility] Anion Gap 4 3 - 11 LAB CHEMISTRY METHOD 05/15/2025 3:13 PM [facility] Glucose 83 70 - 100 mg/dL LAB CHEMISTRY METHOD 05/15/2025 3:13 PM [facility] BUN 9 5 - 25 mg/dL LAB CHEMISTRY METHOD 05/15/2025 3:13 PM [facility] Creatinine 0.60(L) 0.70 - 1.30 mg/dL LAB CHEMISTRY METHOD 05/15/2025 3:13 PM [facility] eGFR 105 >=60 mL/min/1. 73m2 LAB CHEMISTRY METHOD 05/15/2025 3:13 PM [facility] Comment:Calculation based on the Chronic Kidney Disease Epidemiology Collaboration (CKD-EPI) equation refit without adjustment for race. BUN/Creatinine Ratio 15.0 LAB CHEMISTRY METHOD 05/15/2025 3:13 PM [facility] Calcium 9.1 8.5 - 10.5 mg/dL LAB CHEMISTRY METHOD 05/15/2025 3:13 PM [facility] AST (SGOT) 15 10 - 42 unit/L LAB CHEMISTRY METHOD 05/15/2025 3:13 PM [facility] ALT (SGPT) 18 10 - 60 unit/L LAB CHEMISTRY METHOD 05/15/2025 3:13 PM [facility] Alkaline Phosphatase 99 42 - 121 unit/L LAB CHEMISTRY METHOD 05/15/2025 3:13 PM [facility] Total Protein 6.7 6.0 - 8.0 g/dL LAB CHEMISTRY METHOD 05/15/2025 3:13 PM [facility] Albumin 3.7 3.2 - 5.0 g/dL LAB CHEMISTRY METHOD 05/15/2025 3:13 PM [facility] Total Bilirubin 0.4 0.0 - 1.4 mg/dL LAB CHEMISTRY METHOD 05/15/2025 3:13 PM EDT [facility] Blood Venous blood specimen / Unknown Venipuncture / Unknown 05/15/2025 1:32 PM EDT 05/15/2025 2:09 PM EDT Inna Chucho YOST LAB BLOOD ORDERABLES Fin al Result [facility] [address] [place] [address], * COLONOSCOPY Anesthesia - MAC; [facility] ENDOSCOPY (03/08/2025 3:42 PM EDT) Anatomical Region Laterality Modality Endoscopy 03/08/2025 3:16 PM EDT Impressions 03/08/2025 3:43 PM EDT - Non-bleeding internal hemorrhoids. - The examination was otherwise normal on direct and retroflexion views. - No specimens collected. Recommendation: - Discharge patient to home. - Resume previous diet. - Continue present medications. - Repeat colonoscopy in 5 years for surveillance. - Return to GI office PRN. Narrative 03/08/2025 3:43 PM EDT [facility] GI Patient Name: Brittany Hansen Procedure Date: 03/08/2025 3:16 PM Date of : 1955 Age: 69 Room: ROOM 15 Gender: Male Note Status: Finalized Attending MD: Dwayne Lopez MD, Procedure Date No Time: 03/08/2025 Procedure: Colonoscopy Indications: High risk colon cancer surveillance: Personal history of colonic polyps Providers: Dwayne Lopez MD Referring MD: Dwayne Lopez MD Medicines: Monitored Anesthesia Care Complications: No immediate complications. Estimated Blood Loss: Estimated blood loss: none. Procedure: Pre-Anesthesia Assessment: - ASA Grade Assessment: II - A patient with mild systemic disease. - After reviewing the risks and benefits, the patient was deemed in satisfactory condition to undergo the procedure. After I obtained informed consent, the scope was passed under direct vision. Throughout the procedure, the patient's blood pressure, pulse, and oxygen saturations were monitored continuously.The Olympus Pediatric Colonoscope was introduced through the anus and advanced to the cecum, identified by appendiceal orifice and ileocecal valve. The colonoscopy was performed without difficulty. The patient tolerated the procedure well. The quality of the bowel preparation was adequate. Findings: Non-bleeding internal hemorrhoids were found during retroflexion. The hemorrhoids were small. The exam was otherwise without abnormality on direct and retroflexion views. Procedure Code(s): --- Professional --- G0105, Colorectal cancer screening; colonoscopy on individual at high risk Diagnosis Code(s): --- Professional --- Z86.010, Personal history of colonic polyps CPT copyright 2020 [employer]. All rights reserved. The codes documented in this report are preliminary and upon battery hand review may be revised to meet current compliance requirements. Dwayne Lopez MD 03/08/2025 3:43:29 PM This report has been signed electronically.Dwayne Lopez MD Number of Addenda: 0 Note Initiated On: 03/08/2025 3:16 PM Scope In: Scope Out: Endoscopy Department at [facility] - [address] [place] [id number] Procedure Note Dwayne Lopez MD - 03/08/2025 [facility] GI Patient Name: Brittany Hansen Procedure Date: 03/08/2025 3:16 PM Date of : 1955 Age: 69 Room: ROOM 15 Gender: Male Note Status: Finalized Attending MD: Dwayne Lopez MD, Procedure Date No Time: 03/08/2025 Procedure: Colonoscopy Indications: High risk colon cancer surveillance: Personalhistory of colonic polyps Providers: Dwayne Lopez MD Referring MD: Dwayne Lopez MD Medicines: Monitored Anesthesia Care Complications: No immediate complications. Estimated Blood Loss: Estimated blood loss: none. Procedure: Pre-Anesthesia Assessment: - ASA Grade Assessment: II - A patient with mild systemic disease. - After reviewing the risks and benefits, thepatient was deemed in satisfactory condition to undergo the procedure. After I obtained informed consent, the scope was passed under direct vision. Throughout theprocedure, the patient's blood pressure, pulse, and oxygen saturations were monitored continuously.The Olympus Pediatric Colonoscope was introduced through theanus and advanced to the cecum, identified byappendiceal orifice and ileocecal valve. The colonoscopy was performed without difficulty. The patient tolerated the procedure well. The quality of the bowel preparation was adequate. Findings: Non-bleeding internal hemorrhoids were found during retroflexion. The hemorrhoids were small. The exam was otherwise without abnormality ondirect and retroflexion views. Procedure Code(s): --- Professional --- G0105, Colorectal cancer screening; colonoscopy on individual at high risk Diagnosis Code(s): --- Professional --- Z86.010, Personal history of colonic polyps CPT copyright 2020 [employer]. All rights reserved. The codes documented in this report are preliminary and upon battery hand reviewmay be revised to meet current compliance requirements. Dwayne Lopez MD 03/08/2025 3:43:29 PM This report has been signed electronically.Dwayne Lopez MD Number of Addenda: 0 Note Initiated On: 03/08/2025 3:16 PM Scope In: Scope Out: Endoscopy Department at [facility] - [address] [place] [id number] IMPRESSION: - Non-bleeding internal hemorrhoids. - The examination was otherwise normal on directand retroflexion views. - No specimens collected. Recommendation: - Discharge patient to home. - Resume previous diet. - Continue present medications. - Repeat colonoscopy in 5 years for surveillance. - Return to GI office PRN. us Dwayne Lopez MD GI~PROCEDURE ORDERABLES Final Result * (ABNORMAL) Lipid panel with reflex to direct LDL (11/24/2024 11:48 AM EDT) Cholesterol 181 0 - 200 mg/dL LAB CHEMISTRY METHOD 11/24/2024 3:05 PM EDT [facility] Triglycerides 122 0 - 150 mg/dL LAB CHEMISTRY METHOD 11/24/2024 3:05 PM EDT [facility] HDL 47 >=40 mg/dL LAB CHEMISTRY METHOD 11/24/2024 3:05 PM EDT [facility] LDL Calculated 110(H) 0 - 100 mg/dL LAB CHEMISTRY METHOD 11/24/2024 3:05 PM EDT [facility] VLDL Cholesterol George 24.4 mg/dL LAB CHEMISTRY METHOD 11/24/2024 3:05 PM EDT [facility] Non HDL Chol. (LDL+VLDL) 134 <145 mg/dL LAB CHEMISTRY METHOD 11/24/2024 3:05 PM EDT [facility] Chol/HDL Ratio 3.9 0.0 - 4.4 LAB CHEMISTRY METHOD 11/24/2024 3:05 PM EDT [facility] Blood Venous blood specimen / Unknown Venipuncture / Unknown 11/24/2024 11:48 AM EDT 11/24/2024 12:48 PM EDT us Fan Bellamy MD LAB BLOOD ORDERABLES Final Re sult Performing Organization Address City/Va Hospital/ZIP Co de Phone Number [facility] [address] [place] [address], [place] [phone] * Hemoglobin A1c (11/24/2024 11:48 AM EDT) Hemoglobin A1C 5.7 <6.5 % LAB CHEMISTRY METHOD 11/24/2024 11:05 PM EDT [facility] Mean Bld Glu Estim. 117 mg/dL LAB CHEMISTRY METHOD 11/24/2024 11:05 PM EDT [facility] Blood Venous blood specimen / Unknown Venipuncture / Unknown 11/24/2024 11:48 AM EDT 11/24/2024 12:50 PM EDT us Fan Bellamy MD LAB BLOOD ORDERABLES Final Re sult Performing Organization Address City/Va Hospital/ZIP Co de Phone Number [facility] [address] [place] [address], [place] [phone] from Last 3 Months or Most Recently Relevant to Health Maintenance Insurance [employer] Member Subscriber Plan / Payer (Ef fective 2023-Present) Name:BRITTANY HANSEN Relation to Subscriber:Self Name:Brittany Hansen Payer ID:[id number] Group ID:[id number] Type:Not on file Address: [place] [address] [place] [id number] Care Teams Senior Engineering Tech Relationship Specialty Start Date End Date Kailee Barker [address] [place] [address] PCP - General 03/09/25
--- OUTSIDE RECORDS SUMMARY | 2025-08-21 16:27 | XMS_ITS | Encounter Summary ---
Author Organization [employer] Address [address] [facility] 7[address] [place] [address] Care Team Providers Care Rn Baby Name Role Phone Lucia Reema KRYSTIAN Primary Care Provider [phone] Reason for Visit * Reason Comments Med Refill Encounter Details Date Type Department Care Team ([facility] st Contact Info) Description 06/19/2024 Refill [facility] MEDICINE [address] [place] [address] Jackie Quijano FNP [address] [place] [address] Social History Tobacco Use Types Packs/Day Years [...] documented as of this encounter Care Teams Rn Baby Relationship Specialty Start Date End Date Reema Myers NP [address] [place] [phone] PCP - General Family Medicine 04/27/24 documented as of this encounter
--- OUTSIDE RECORDS SUMMARY | 2025-08-21 16:27 | XMS_ITS | Encounter Summary ---
Author Organization [employer] Address [address] [facility] 7[address] [place] [address] Care Team Providers Care Installation And Repair Technician Name Role Phone Lucia Reema KRYSTIAN Primary Care Provider [phone] Reason for Visit * Reason Comments Med Refill Encounter Details Date Type Department Care Team ([facility] st Contact Info) Description 12/10/2024 Refill [facility] MEDICINE [address] [place] [address] Jackie Quijano FNP [address] [place] [address] Social History Tobacco Use Types Packs/Day Years [...] documented as of this encounter Care Teams Installation And Repair Technician Relationship Specialty Start Date End Date Reema Myers NP [address] [place] [id number] PCP - General Family Medicine 04/27/24 documented as of this encounter
--- OUTSIDE RECORDS SUMMARY | 2025-08-21 16:27 | XMS_ITS | Clinical Summary ---
Author Organization [employer] Address [address] [place] [address] 7[address] [place] [address] Care Team Providers Care Senior Sas Developer Name Role Phone Lueliel Reema BOLAND Primary Care Provider [phone] Allergies No known active allergies Medications Fluticasone-Ume clidin-Vilant (Trelegy Ellipta) 200-62.5-25 MCG/ACT aerosol powder Inhale 1 Inhalation 1 (one) time each day. Active cholecalciferol (Vitamin D-3) 50 MCG (1999) capsule Take 1 capsule by mouth in the morning. Active cyclobenzaprine (Flexeril) 10 MG tablet Take 1 tablet by mouth if needed in the morning, at noon, and at bedtime for pain. 2 Active sertraline (Zoloft) 100 MG tablet Take 2 tablets by mouth in the morning. 7 Active risperiDONE (RisperDAL) 1 MG tablet Take 1 mg by mouth in the morning. 2 Active OXcarbazepine (Trileptal) 150 MG tablet Take 1 tablet by mouth in the morning and at bedtime. 7 Active traZODone (Desyrel) 100 MG tablet TAKE 3 TABLETS BY MOUTH AT BEDTIME. INCREASE DOSE 7 Active tamsulosin (Flomax) 0.4 MG 24 hr capsule daily. 7 Active simethicone (Mylicon,Gas-X) 180 MG capsule 2 times daily. 1 Active mupirocin (Bactroban) 2 % ointment 2 times daily. Activ e Multiple Vitamin (Multi Vitamin) tablet daily. Acti ve mometasone-form oterol (Dulera) 100-5 MCG/ACT inhaler 2 times daily. Activ e finasteride (Proscar) 5 MG tablet daily. 0 Active cloNIDine (Catapres) 0.1 MG tablet TAKE 1 TABLET BY MOUTH THREE TIMES DAILY NEEDED FOR ANXIETY Diagnosis Unavailable Active albuterol (Ventolin HFA) 108 (90 Base) MCG/ACT inhalerIndicati ons:Type 2 diabetes mellitus without complication, without long-term current use of insulin (HCC) INHALE 2 PUFFS BY MOUTH FOUR TIMES DAILY NEEDED FOR WHEEZING 18 g 3 3 Active Omeprazole 20 MG tablet delayed-release Take 20 mg by mouth 2 times daily. 108 tablet 3 3 Active Lancets misc 1 each 2 times daily. 100 each 11 4 Active atorvastatin (Lipitor) 80 MG tablet TAKE 1 TABLET(80 MG) BY MOUTH IN THE MORNING 90 tablet 1 4 Active lidocaine (Lidoderm) 5 % patch Apply 1 patch topically Once per day. Remove & discard patch within 12 hours or as directed by MD. 15 patch 2 4 Active nicotine (Nicoderm CQ) 14 MG/24HR patch Place 1 patch on the skin 1 (one) time each day at the same time. 42 patch 4 Active nicotine polacrilex (Nicotine Mini) 2 MG lozenge Dissolve 1 lozenge (2 mg) in the mouth every 2 (two) hours if needed for smoking cessation. 100 lozenge 4 Active fluticasone (Flonase) 50 MCG/ACT nasal spray Administer 2 sprays into each nostril Once per day. Shake gently. Before first use, prime pump. After use, clean tip and replace cap. 16 g 2 4 Active gabapentin (Neurontin) 300 MG capsule TAKE 1 CAPSULE(300 MG) BY MOUTH THREE TIMES DAILY 90 capsule 11 5 Active Active Problems Problem Noted Date Diagnosed Date Colon cancer screening 03/17/2024 Back pain 12/12/2023 Assessment & Plan (12/12/2023 3:35 PM EDT): Pt has multiple complaints currently reports urinary symptoms mainly concern with dark urine and describes on and off dysuria . Pt denies been taking BPH meds ? Not sure Noted Lost 9 pounds since last 4 months -EKG today HR 81, QTC 434, NSR,no ischemic findings -Colonoscopy 05/2022 normal -3 y ago had prostate surgery -lost care w urologist per [facility] -UA w reflex to cx -chem,cbc,CPK ,hb1AC -referred for renal US to r/o renal obstruction or masses ,CXR -XR lumbar for lower back pain to r/o lytic lesions -advised tylenol prn and lidoderm patch for neck and lower back -referred to GI for reported chronic diarrhea/constipation -alarm sigsn and symptoms discussed w pt -f w PCP in 2 weeks to f labs and images , if not conclusive findings would need to consider MRI of neck and lower back , pt does have 4/5 Generalized weakness , hold for now with no focalizing neurologic findings ,unsure why pt needing RW -advised pt to bring meds at next visit w PCP to clarify if taking or not BPH meds ,if ongoing urinary symptoms may need to refer back to urologist History of colonic polyps 06/09/20232022 Incomplete emptying of bladder 12/24/2022 Overview (12/24/2022): Bladder diverticulum, follows with Dr Pretty Had Laser enucliation of prostate 2009 Chronic obstructive lung disease 08/14/2022 Syncope 08/14/2022 Chronic sinusitis 08/14/2022 Chronic constipation 08/14/2022 Nicotine dependence 11/18/2018 Assessment & Plan (12/12/2023 3:35 PM EDT): Advised pt to decrease tobacco use , pt interested in stop smoking -Px today nicotine lozanges and patches -will need to f w PCP if qualifies for CT lung ca screening Benign essential hypertension 01/03/2016 Obstructive sleep apnea 01/03/2016 Severe recurrent major depre ssion without psychotic features (CMS/HCC) 01/03/2016 Type 2 diabetes mellitus without complication Immunizations Immunization Administration Dates Next Due Influenza High-dose Quadrivalent Preservative Fr ee 08/14/2023 Influenza injectable quadriv alent IIV4 with preservative 07/02/2017 Influenza injectable quadrivalent preservative f ree 08/20/2021,08/08/2019 Influenza, IIV3, injectable 06/11/2021, 8 Influenza, seasonal, injectable, preservative fr ee 06/20/2016 Pfizer Covid-19 Vaccine 12+ 08/14/2023 Pneumococcal Conjugate PCV 13 01/02/2022 Pneumococcal Polysaccharide PPSV23 06/20/2016 Td (adult), 5 Lf tetanus tox oid, preservative free, adsorbed 12/06/2014,01/23/2013 Zoster, Recombinant 01/12/2022 Family History Medical History Relation Name Comments Diabetes type II Mother Hypertension Mother Diabetes type II Sister Relation Name Status Comments Mother Sister Social History Tobacco Use Types Packs/Day Years [...] is your housing situation today? I have silvanojulienne castrejon 06/09/[address] you [...] Orientation Straight 06/23/2022 10 :23 AM EDT Last Filed Vital Signs Vital Sign Reading Time Taken Comments Blood Pressure 114/74 03/18/2024 10:16 AM EDT Pulse 66 03/18/2024 10:16 AM EDT Temperature 36.1 C (97 F) 12/11/2023 1:18 PM EDT Respiratory Rate 14 03/18/2024 10:16 AM EDT Oxygen Saturation 98% 03/18/2024 10:16 AM EDT Inhaled Oxygen Concentration - - Weight 63.2 kg (139 lb 6.4 oz) 03/18/2024 10:16 AM EDT Height 170.2 cm (5' 7 ) 03/18/2024 10:16 AM EDT Body Mass Index 21.83 03/18/2024 10:16 AM EDT Plan of Treatment Health Maintenance Due Date Last Done Comments CT Colonography 1956 Dental X-Ray: Bitewings 1956 FIT 1956 Sigmoidoscopy 1956 Diabetes: Foot Exam 1966 Eye Exam 1966 Alcohol/Substance Use Screening 1968 Hepatitis C Screening 1974 RSV Patients and Patients Aged 60 years or older (1 - Risk 50-74 years 1-dose series) 2006 Dental Prophylaxis 06/14/2022 12/12/2021, 0 03/21/2021, 08/25/2019, Additional history exists Dental Oral Exam 08/06/2022 02/03/2022, , 06/03/2019, Additional history exists Diabetes: Urine Protein Screening 05/09/2023 05/09/2022, 01/02/2021 Lipid Panel 12/25/2023 12/24/2022, 05/09/2022 Dental X-Ray: Full Mouth 03/06/2024 03/05/2021 SDOH Screening 04/16/2024 04/16/2023 Depression Screening 11/03/2024 11/04/2023, 11/04/19 24 Tobacco Screening 03/18/2025 03/18/2024 COVID-19 Vaccine ( season) 2025 08/14/2023, 08/31/2022, 08/21/2021, Additional history exists Influenza Vaccine (#1) 2025 , 08/14/2023, 08/20/2021, Additional history exists Diabetes: Hemoglobin A1C 05/26/2025 04 025, 10/12/2024, 06/20/2024, Additional history exists FOBT 01/19/2026 01/19/2025 FIT DNA/Cologuard 01/20/2028 01/19/2025 Colonoscopy 03/08/2030 03/08/2025, 0712/2024, 06/17/2022 Colorectal Cancer Screening 03/08/2030 DTaP/Tdap/Td Vaccines (2 - Td or Tdap) 06/20/2034 06/20/2024, 12/06/2014, 01/23/2013 Pneumococcal Vaccine: 50+ Years Completed 06/20/2024, 01/02/2022, 06/20/2016 Zoster Vaccines Completed 06/20/2024, 01/12/2022 HIB Vaccines Aged Out No longer eligi [...] patient's age to complete this topic Meningococcal Vaccine Aged Out No kashmir davion eligible based on patient's age to complete this topic RSV under 20 months Aged Out No longe r eligible based on patient's age to complete this topic Rotavirus Vaccines Aged Out No longer eligible based on patient's age to complete this topic Procedures Procedure Name Priority Date/Time Associated Diagnosis Comments HM COLONOSCOPY Routine 03/07/2025 HEMOGLOBIN A1C Routine 12/11/2023 2:21 PM EDT Weight loss LIPID PANEL, STANDARD Routine 12/24/2022 3:47 PM EDT Type 2 diabetes mellitus without complication, without long-term current use of insulin ([facility]) ALBUMIN, RANDOM URINE W/CREATININE Routine 05/09/2022 9:20 AM EDT PERIODIC ORAL EVALUATION - ESTABLISHED PATIENT Routine 02/03/2022 12:00 AM EDT PROPHYLAXIS - ADULT Routine 12/12/2021 1 2:00 AM EDT PANORAMIC RADIOGRAPHIC IMAGE Routine 03/05/2021 12:00 AM EDT from Last 3 Months or Most Recently Relevant to Health Maintenance Results * Hm Colonoscopy (03/07/2025) Colonoscopy Normal Normal Narrative Pauly Kirby - 03/07/2025 Recommended 5 years follow up . Results in care everywhere Astrid Provider HEALTH MAINTENANCE Final Result * Hemoglobin A1c (12/11/2023 2:21 PM EDT) Hemoglobin A1c 6.0 <6.0 % [facility] Comment:Hemoglobin A1C Refer ence Range Adults: 4.8 - 6.0 % Non diabetic: < 6.0 % Goal: < 7.0 %Additional Action Suggested: > 8.0 %Note: Hemoglobin A1c results are invalid for patients with abnormal amounts of HbF. Blood transfusions may impact the HbA1c concentration in the patient sample. Estimated Average Glucose 126 mg/dL [facility] Comment:eAG = Estimated ave rage glucose which is %A1C expressed asaverage glucose, using the formula of the A6H-XdfaubjDzeedko Glucose study (ADAG), Diabetes Care, Vol.31,#8,Mar. 2007 Blood Venous blood specimen / Unknown 12/11/2023 2:21 PM EDT 12/11/2023 4:06 PM EDT Berenice Blanc MD LAB BLOOD ORDERAB LES Final Result [facility] [address] [place] [phone] [phone] * (ABNORMAL) Lipid Panel, Standard (12/24/2022 3:47 PM EDT) Cholesterol, Total 224(H) <200 mg/dL [employer] [place] [facility] HDL Cholesterol 42 > OR = 40 mg/dL [facility] Triglycerides 206(H) <150 mg/dL [email or web address] Comment: If a non-fasting specimen was collected, consider repeat triglyceride testing on a fasting specimen if clinically indicated. Nya et al. J. of Clin. Lipidol. 2015;9:129-169. LDL Cholesterol 148(H) mg/dL (calc) [facility] Comment: Reference range: <100 Desirable range <100 mg/dL for primary prevention; <70 mg/dL for patients with CHD or diabetic patients with > or = 2 CHD risk factors. LDL-C is now calculated using the Jorge-Nuñez calculation, which is a validated novel method providing better accuracy than the Friedewald equation in the estimation of LDL-C. Jorge SS et al. DEVIN. 2013;310(19): 7838-3518 (http://education.BLUEPHOENIX/faq/POW652) Chol/HDLC Ratio 5.3(H) <5.0 (calc) [facility] Non-HDL Cholesterol 182(H) <130 mg/dL (calc) [email or web address] Comment: For patients with diabetes plus 1 major ASCVD risk factor, treating to a non-HDL-C goal of <100 mg/dL (LDL-C of <70 mg/dL) is considered a therapeutic option. Blood Venous blood specimen / Unknown 12/24/2022 3:47 PM EDT 12/24/2022 3:47 PM EDT Narrative [facility] - 12/25/2022 4:58 AM EDT FASTING:NO FASTING: NO Jackie MOTLEYP LAB BLOOD ORDERABLES Final Resu lt [address], [facility], [place] [address] [facility] [address] [place] [address] * ALBUMIN, RANDOM URINE W/CREATININE (05/09/2022 9:20 AM EDT) Microalbumin Urine 0.6 See Note: mg/dL [facility] Comment: Reference Range: Reference Range Not established Microalb/Creat Ratio 4 <30 mcg/mg creat [facility] Comment: The ADA defines abnormalities in albumin excretion as follows: Albuminuria Category Result (mcg/mg creatinine) Normal to Mildly increased <30 Moderately increased 30-299 Severely increased > OR = 300 The ADA recommends that at least two of three specimens collected within a 3-6 month period be abnormal before considering a patient to be within a diagnostic category. Creatinine, Urine 137 20 - 320 mg/dL [facility] 05/09/2022 9:20 AM EDT Dominick Edwards MD LAB URINE ORDERABLES Final R esult [facility] [address] from Last 3 Months or Most Recently Relevant to Health Maintenance Insurance [facility] < [address] [place] [id number] [facility] Care Teams Senior Sas Developer Relationship Specialty Start Date End Date Reema Myers NP [address] [place] [id number] PCP - General Family Medicine 04/27/24
== END 2025-08-21 14:09 ==
LOC: HO.US 14:08
PROVIDERS: Visit Provider Urology
DX: N43.3 Hydrocele, unspecified (principal)
CPT/HCPCS: 76870

== ENCOUNTER → 2025-08-21 15:08 | Outpatient (BNV) | payer OTHER, SELFPAY | PROVIDERS: Visit Provider Radiology Diagnostic Radiology | DX: N43.3 Hydrocele, unspecified (principal); N50.3 Cyst of epididymis | CPT/HCPCS: 76870 ==